=== PATIENT | female | born 1950 | race African-American/Black ===

== ENCOUNTER 2019-11-22 10:19 | Outpatient (CLI) | payer MEDICARE, BC, SELFPAY ==
[2019-11-22 12:07] LABS: Hemoglobin A1C 6.7 % (<5.7)
[2019-11-22 12:09] LABS: Alanine Aminotransferase 24 U/L (4-35); Alkaline Phosphatase 55 U/L (38-126); Aspartate Amino Transferase 29 U/L (14-36); Bilirubin,Total 0.4 mg/dL (0.2-1.3); Blood Urea Nitrogen 18 mg/dL (7-17); Calcium 9.8 mg/dL (8.4-10.2); Carbon Dioxide 33 mmol/L (22-30); Chloride 101 mmol/L (98-107); Cholesterol 127 mg/dL (0-200); Estimated Glomerular Filt Rate > 60; Glucose 123 mg/dL (65-105); HDL Direct 39 mg/dL; Potassium 3.9 mmol/L (3.4-5.0); Sodium 140 mmol/L (137-145); Triglycerides 56 mg/dL (<150)
[2019-11-22 12:20] LABS: LDL Cholesterol Direct 71 mg/dL
[2019-11-22 12:27] LABS: MALB Creatinine Ratio 5.4 mg/g (0-30); Microalbumin Urine Random 11.4 mg/L (0-16.7)
== END 2019-11-22 10:20 | disposition home or self-care (01) ==
LOC: ANHLAB 10:23
PROVIDERS: PCP Family Medicine; Visit Provider Nurse Practitioner
DX: E78.5 Hyperlipidemia, unspecified (principal); E11.9 Type 2 diabetes mellitus without complications
CPT/HCPCS: 36415; 80053; 80061; 82043; 83036

== ENCOUNTER → 2020-07-28 12:22 | Outpatient (CLI) | payer MEDICARE, BC, SELFPAY ==
--- NOTE | ~2020-07-28 | MM_ITS ---
EXAMINATION: MM screening [facility] BI w rebecca HISTORY: Screening mammogram TECHNIQUE: Craniocaudal and mediolateral oblique 3-D tomosynthesis images were obtained and synthetic 2-D images were generated. CAD analysis was submitted and interpreted. COMPARISON: 02/16/2019, 02/09/2018, 02/07/2017 BREAST PARENCHYMAL COMPOSITION: There are scattered areas of fibroglandular density. FINDINGS: Scattered benign-appearing calcifications are present. There is no evidence of suspicious m ass, calcification, or architectural distortion to suggest malignancy in either breast. There has bee n no suspicious interval change. IMPRESSION: 1. No mammographic evidence of malignancy. 2. Recommend routine screening mammography in one year. BI-RADS Category 2: Benign finding(s). Reviewed, dictated and finalized at location A.
== END ==
PROVIDERS: PCP Family Medicine; Visit Provider Family Medicine
DX: Z12.31 Encounter for screening mammogram for malignant neoplasm of breast (principal)
CPT/HCPCS: 77063; 77067

== ENCOUNTER 2020-08-05 10:22 | Outpatient (CLI) | payer MEDICARE, BC, SELFPAY ==
[2020-08-05 10:52] LABS: Basophils Percent Auto 0.1 % (0.2-1.2); Eosinophils Absolute Auto 0.1 K/mm3 (0-0.3); Eosinophils Percent Auto 1.4 % (0-4.4); Hematocrit 38.4 % (37.0-47.0); Hemoglobin 12.1 g/dL (12.0-15.0); Immature Granulocyte Absolute 0.03 K/mm3 (0.00-0.031); Immature Granulocyte Percent A 0.4 % (0-0.5); Lymphocytes Absolute Auto 1.86 K/mm3 (0.9-3.2); Lymphocytes Percent Auto 26.7 % (18.3-44.2); Mean Corpuscular HGB Conc 31.5 g/dl (32-36); Mean Corpuscular Hemoglobin 27.8 pg (26-34); Mean Corpuscular Volume 88.3 fl (80-100); Mean Platelet Volume 11.1 fl (7.4-10.4); Monocytes Absolute Auto 0.4 K/mm3 (0.1-0.6); Monocytes Percent Auto 6.2 % (2.6-8.5); Neutrophils Absolute Auto 4.5 K/mm3 (1.3-6.7); Neutrophils Percent Auto 65.2 % (45.5-73.1); Platelet Count Result 228 k/mm3 (150-375); Red Blood Count 4.35 M/mm3 (4.2-5.4); Red Cell Distribution Width 12.7 % (11.5-14.5)
[2020-08-05 11:06] LABS: Alanine Aminotransferase 19 U/L (4-35); Albumin Level 4.1 g/dL (3.5-5.1); Alkaline Phosphatase 58 U/L (38-126); Anion Gap 6 mmol/L (8-16); Aspartate Amino Transferase 29 U/L (14-36); Bilirubin,Total 0.5 mg/dL (0.2-1.3); Blood Urea Nitrogen 15 mg/dL (7-17); Calcium 10.2 mg/dL (8.4-10.2); Carbon Dioxide 33 mmol/L (22-30); Chloride 101 mmol/L (98-107); Cholesterol 135 mg/dL (0-200); Estimated Glomerular Filt Rate > 60; Glucose 111 mg/dL (65-105); HDL Direct 44 mg/dL; Sodium 140 mmol/L (137-145); Triglycerides 72 mg/dL (<150)
[2020-08-05 11:17] LABS: LDL Cholesterol Direct 64 mg/dL
[2020-08-05 11:35] LABS: Total Triiodothyronine (T3) 1.28 NG/ML (0.97-1.69)
[2020-08-05 11:45] LABS: Creatinine Urine 22.1 mg/dL
[2020-08-05 11:47] LABS: Free T4 Free Thyroxine 1.05 ng/mL (0.78-2.19); Vitamin D 25 Hydroxy 60.4 ng/mL
[2020-08-05 12:14] LABS: Microalbumin Urine Random < 6.0 mg/L (0-16.7)
== END 2020-08-05 10:23 | disposition home or self-care (01) ==
LOC: ANHLAB 10:25
PROVIDERS: PCP Family Medicine; Visit Provider Family Medicine
DX: E11.21 Type 2 diabetes mellitus with diabetic nephropathy (principal); E03.9 Hypothyroidism, unspecified; E78.3 Hyperchylomicronemia; M62.81 Muscle weakness (generalized); Z13.0 Encounter for screening for diseases of the blood and blood-forming organs and certain disorders involving the immune mechanism; Z13.6 Encounter for screening for cardiovascular disorders; Z13.220 Encounter for screening for lipoid disorders; Z13.29 Encounter for screening for other suspected endocrine disorder; R80.9 Proteinuria, unspecified; E55.9 Vitamin D deficiency, unspecified
CPT/HCPCS: 36415; 80053; 80061; 82043; 82306; 84439; 84443; 84480; 85025

== ENCOUNTER 2020-12-07 16:16 | Outpatient (CLI) | payer MEDICARE, BC, SELFPAY | END 2020-12-07 16:17 | disposition home or self-care (01) | LOC: ANHCOVIDVC 16:16 | PROVIDERS: PCP Family Medicine | DX: Z23 Encounter for immunization (principal) | CPT/HCPCS: 0001A; 91300 ==

== ENCOUNTER 2020-12-28 16:12 | Outpatient (CLI) | payer MEDICARE, BC, SELFPAY | END 2020-12-28 16:13 | disposition home or self-care (01) | LOC: ANHCOVIDVC 16:12 | PROVIDERS: PCP Family Medicine | DX: Z23 Encounter for immunization (principal) | CPT/HCPCS: 0002A; 91300 ==

== ENCOUNTER 2021-01-23 16:10 | Inpatient (IN) | payer MEDICARE, BC, SELFPAY ==
--- NOTE | ~2021-01-23 | CT_ITS ---
EXAMINATION: CT BRAIN W/O DATE: 01/23/2021 17:20 INDICATION: Status post fall. Head injury. TECHNIQUE: Computed tomography (CT) of the head was performed without intravenous contrast. The dose- length product was 605.33 mGy-cm. COMPARISON: No prior studies for comparison. FINDINGS: Normal brain parenchymal volume for age. Normal yun-white differentiation. No acute intrac ranial hemorrhage, infarction, mass or mass effect. There is focal calcification of the left temporal lobe, likely sequela of previous trauma or infection. No ventriculomegaly or midline shift. Midline sagittal images demonstrate a normal corpus callosum, c raniovertebral junction and sella turcica. Basilar cisterns are patent. Paranasal sinuses and mastoids are pneumatized. No depressed skull fractures. IMPRESSION: 1. No acute intracranial abnormality. Reviewed, dictated and finalized at location A.
--- NOTE | ~2021-01-23 | XR_ITS ---
XR hip BI 2V w AP pelvis 01/23/2021 17:32 INDICATION: Bilateral hip pain. Status post fall. PROCEDURE: 3 views of each hip including AP pelvis COMPARISON: No prior studies for comparison. FINDINGS: Fracture, dislocation or subluxation is not identified. There is advanced lower lumbar spon dylosis. Pelvic rings are intact. The soft tissues appear within normal limits. No foreign bodies ar e identified. IMPRESSION: 1: NO ACUTE BONE OR JOINT ABNORMALITY IDENTIFIED. Reviewed, dictated and finalized at location A.
--- NOTE | ~2021-01-23 | XR_ITS ---
XR chest 1V 01/23/2021 17:34 Indication: Hypertension. Diabetes. Procedure: AP view of the chest Comparison: No prior studies for comparison. Findings: There are right perihilar infiltrates, suspicious for pneumonia. Cardiomegaly. No pleural e ffusion, edema or pneumothorax. No acute osseous abnormality. Impression: 1: Right perihilar infiltrates, compatible with pneumonia. Reviewed, dictated and finalized at location A. Impression: 1: Right perihilar infiltrates, compatible with pneumonia.
--- NOTE | ~2021-01-23 | XR_ITS ---
XR knee LT 3V 01/23/2021 17:33 INDICATION: Left knee pain PROCEDURE: 3 views left knee COMPARISON: No prior studies for comparison. FINDINGS: Fracture, dislocation or subluxation is not identified. The soft tissues appear within norm al limits. No foreign bodies are identified. IMPRESSION: 1: NO ACUTE BONE OR JOINT ABNORMALITY IDENTIFIED. Reviewed, dictated and finalized at location A.
--- NOTE | ~2021-01-23 | CT_ITS ---
EXAMINATION: CTA chest PE protocol DATE: 01/23/2021 19:15 CDT INDICATION: Dyspnea. Infiltrates. TECHNIQUE: Computed tomographic angiography (CTA) of the chest was performed with 100 mL Omnipaque-35 0 intravenous contrast. The dose-length product was 235.07 mGy-cm. Maximum intensity projection 3D-re constructions of the aorta and other arteries were constructed by the technologist on a separate work station. COMPARISON: None. FINDINGS: The study is technically adequate without evidence for pulmonary embolism. No significant p leural or pericardial effusion. Heart size is normal. No thoracic lymphadenopathy. No evidence for aortic aneurysm or dissection. The right perihilar infiltrate seen on chest x-ray dated 01/23/[address] is [address] appreciated [address] CT examination, likely soft tissue attenuation artifact. No endobronchial lesions. No pneumothorax. No suspicious pu lmonary nodules or masses. There is a hypodense lesion of the right hepatic lobe measuring 3.3 x 2.4 cm. Otherwise the upper abd omen is unremarkable. IMPRESSION: 1. No acute cardiopulmonary disease. No evidence for pulmonary embolism. 2: Hypodense mass right hepatic lobe measuring 3.3 x 2.4 cm. In the absence of known malignancy this most likely represents benign etiology such as hemangioma, although malignancy is not excluded. Recom mend further evaluation with contrast-enhanced MRI abdomen on a nonemergent basis. Reviewed, dictated and finalized at location A. IMPRESSION: 1. No acute cardiopulmonary disease. No evidence for pulmonary embolism. 2: Hypodense mass right hepatic lobe measuring 3.3 x 2.4 cm. In the absence of known malignancy this most likely represents benign etiology such as hemangioma , although malignancy is not excluded. Recommend further evaluation with contra st-enhanced MRI abdomen on a nonemergent basis.
--- NOTE | ~2021-01-23 | NM_ITS ---
EXAMINATION: NM carlos stress w perfusion DATE: 01/25/2021 13:13 INDICATION: Elevated troponin. TECHNIQUE: Rest images were obtained following intravenous administration of 9.8 mCi Tc99m tetrofosmi n (Myoview). The patient was infused intravenously with Lexiscan (regadenoson). Then, 20.2 mCi Tc99m tetrofosmin (Myoview) was administered intravenously, and stress images were obtained. Data was recon structed into short axis and horizontal and vertical long axis SPECT images. Gated SPECT images were also obtained. COMPARISON: Chest CT 01/23/2021 FINDINGS: There is a small, mild, fixed perfusion defect involving left ventricular apex and apical s eptal segment, consistent with infarct. No reversible component to suggest ischemia. There is global hypokinesis.. Left ventricular ejection fraction measures 36%. IMPRESSION: 1. Small area of mild infarct involving left ventricular apex and apical septal segment. 2. Global hypokinesis with left ventricular ejection fraction measuring 36%. Reviewed, dictated and finalized at location A.
--- NOTE | ~2021-01-23 | CT_ITS ---
EXAMINATION: CT facial & cervical spine wo DATE: 01/23/2021 17:22 INDICATION: Neck and facial pain after fall TECHNIQUE: Computed tomography (CT) of the maxillofacial region and cervical spine was performed with out intravenous contrast. The dose-length product was 276.34 mGy-cm. Automated exposure control and i terative reconstruction technique were employed. COMPARISON: None FINDINGS: MAXILLOFACIAL CT: No acute maxillofacial fracture. No focal soft tissue abnormality. Paranasal sinuses are pneumatized. Rightward nasal septal deviation. Orbits are intact without blowout fracture. CERVICAL SPINE CT: Straightening of cervical lordosis. There is severe multilevel disc narrowing and endplate sclerosis throughout the cervical spine. No acute fracture or traumatic malalignment. No evidence for perched f acet. There is moderate-severe multilevel uncinate and facet hypertrophy. Lung apices are unremarkabl e. IMPRESSION: 1. No acute abnormality of the maxillofacial bones or cervical spine. Reviewed, dictated and finalized at location A.
[2021-01-23 16:08] VITALS: BP 198/96; PULSE 105; RESP 18; TEMP 36.6; O2SAT 97
--- NOTE | 2021-01-23 16:54 | ECG_ITS ---
Measurements Intervals [place] Rate: 89 P: 60 AL: 170 QRS: 3 QRSD: 157 T: 81 QT: 404 QTc: 494 Interpretive Statements SINUS RHYTHM RIGHT ATRIAL ENLARGEMENT LEFT BUNDLE BRANCH BLOCK ABNORMAL ECG Electronically Signed On 01-23-2021 18:59:56 CDT by Kee Kessler D.O.
--- NOTE | 2021-01-23 17:18 | ED.GENADULT ---
HPI - General Adult General Chief complaint: Fall Stated complaint: fall/laceration Source: patient Mode of arrival: EMS Limitations: other History of Present Illness HPI narrative: Patient presents for evaluation after experiencing a fall at [facility] just prior to arrival. She was brought in by EMS and her sister is at the bedside. Patient is a fairly poor historian and provides vague details related to her fall. Her sister was in the car while pt was grocery shopping. Pt states she paid for her groceries and was walking when she felt something wrong with (her) legs . She said she found herself on the ground. No LOC. She is not on blood thinners. She states that her left knee feels sore . She has a laceration to the chin. She reports pain in her jaw, particularly when opening her mouth. She is diabetic. Her BS are normal at home. She is unsure when her last tetanus was given. She denies chest pain, shortness of breath, cough, abdominal pain, fever, chills, dizziness, and other complaints. No additional complaints or concerns. Related Data Home Medications Medication Instructions Recorded Confirmed acetaminophen 325 mg tablet 325 mg PO Q4H PRN tablet 09/10/19 12/10/19 diclofenac potassium 50 mg oral 50 mg PO BID PRN each 09/10/19 12/10/19 powder packet ranitidine HCl 150 mg tablet 150 mg PO BID tablet 09/10/19 12/10/19 vit A 1,000 unit-C 200 mg-E 60 1 tablet PO DAILY 09/10/19 12/10/19 unit-lutein 2 mg and minerals tablet brimonidine 0.2 %-timolol 0.5 % drp OPHTHALMIC (EYE) 11/05/19 12/10/19 eye drops lancets #50 each 12/10/19 12/10/19 Allergies Allergy/AdvReac Type Severity Reaction Status Date / Time azithromycin Allergy Unknown Itching Verified 01/23/21 16:14 Sulfa (Sulfonamide Allergy Unknown palpatition Verified 01/23/21 16:14 Antibiotics) s sulfur dioxide Allergy Unknown palpatition Verified 01/23/21 16:14 s Review of Systems Review of Systems: Narrative: CONSTITUTIONAL: Denies fever, chills, or sweats. EYES: Denies visual changes, redness, or discharge. ENT: Denies rhinorrhea, congestion, sore throat, or otalgia. CARDIOVASCULAR: Denies chest pain, palpitations, or edema. RESPIRATORY: Denies cough or dyspnea. GASTROINTESTINAL: Denies abdominal pain, nausea, vomiting, or diarrhea. GENITOURINARY: Denies dysuria or hematuria. SKIN: Reports laceration to the chin. Denies rash or itching. MUSCULOSKELETAL: Reports left knee pain. Reports chronic low back pain, unchanged. NEUROLOGIC: Reports fall. denies headache, numbness, dizziness, or weakness. PSYCHIATRIC: Denies anxiety or depression. [facility] Past Medical History Medical History (Updated 01/23/21 @ 20:18 by Bashir Brooks, CARLY, ) Essential (primary) hypertension (~2004) H/O barium enema 2017 Hyperlipidemia (~1999) Sinusitis Type 2 diabetes mellitus without complications (~1999) Surgical History Surgical History H/O colonoscopy 2017 Family History Family History Mother Diabetes mellitus Hypertension Sibling Diabetes mellitus Hypertension Glaucoma, Onset Age: 65 older sister Malignant neoplasm of prostate, Onset Age: 55 older brother Heart disease, Onset Age: 65 1/2 older sister: by mother Carcinoma of colon, Onset Age: 55 biological sister Father Glaucoma Other Family history of colonic diverticulitis Family history of glaucoma Social History Social History Smoking status: Never smoker Second hand tobacco smoke exposure: Yes Alcohol intake: current Substance use: never Living arrangements: with family Gender identity (if verbalized by the patient): Female Exam Narrative: Exam Narrative: GENERAL: Well-appearing, well-nourished, and in no acute distress. HEAD:
[2021-01-23 17:57] VITALS: BP 171/77; PULSE 86; RESP 18; O2SAT 99
[2021-01-23 17:59] LABS: Basophils Percent Auto 0.3 % (0.2-1.2); Eosinophils Absolute Auto 0.1 K/mm3 (0-0.3); Eosinophils Percent Auto 0.8 % (0-4.4); Hematocrit 38.7 % (37.0-47.0); Hemoglobin 12.4 g/dL (12.0-15.0); Immature Granulocyte Absolute 0.02 K/mm3 (0.00-0.031); Immature Granulocyte Percent A 0.3 % (0-0.5); Lymphocytes Absolute Auto 1.65 K/mm3 (0.9-3.2); Lymphocytes Percent Auto 22.9 % (18.3-44.2); Mean Corpuscular Hemoglobin 27.9 pg (26-34); Mean Platelet Volume 11.7 fl (7.4-10.4); Monocytes Absolute Auto 0.4 K/mm3 (0.1-0.6); Monocytes Percent Auto 5.4 % (2.6-8.5); Neutrophils Absolute Auto 5.1 K/mm3 (1.3-6.7); Neutrophils Percent Auto 70.3 % (45.5-73.1); Platelet Count Result 199 k/mm3 (150-375); Red Blood Count 4.45 M/mm3 (4.2-5.4); Red Cell Distribution Width 13.1 % (11.5-14.5); White Blood Count 7.2 K/mm3 (4.5-10.0)
[2021-01-23 18:02] LABS: Add Urine Microscopic? YES; Appearance Urine Clear (Clear); Bacteria Urine Trace /hpf; Bilirubin Urine Negative (Negative); Blood Urine Negative (Negative); Color Urine Straw (Yellow); Glucose Urine UA Negative (Negative); Ketones Urine Negative (Negative); Leukocyte Esterase Ur Negative LEU/UL (Negative); Nitrate Urine Negative (Negative); Protein Urine Negative (Negative); Specific Grav Ur 1.011 (1.001-1.035); Urobilinogen Urine Negative mg/dL (<2.0); WBC Urine 0-3 /hpf
[2021-01-23 18:08] LABS: INR 0.9
[2021-01-23 18:09] LABS: Partial Thromboplastin Time 22.7 SECONDS (22.3-36.8)
[2021-01-23 18:21] LABS: Alanine Aminotransferase 21 U/L (4-35); Albumin Level 4.3 g/dL (3.5-5.1); Alkaline Phosphatase 57 U/L (38-126); Anion Gap 5 mmol/L (8-16); Aspartate Amino Transferase 39 U/L (14-36); Bilirubin,Total 0.3 mg/dL (0.2-1.3); Blood Urea Nitrogen 26 mg/dL (7-17); Carbon Dioxide 30 mmol/L (22-30); Chloride 105 mmol/L (98-107); Estimated CRCL calculation 50 ml/min; Estimated Glomerular Filt Rate > 60; Glucose 153 mg/dL (65-105); Sodium 140 mmol/L (137-145)
--- NOTE | 2021-01-23 19:08 | PC.NURSE ---
this rn received report from tyler kimble at this time.
[2021-01-23 19:49] VITALS: BP 165/75; PULSE 93; RESP 18; O2SAT 99
--- NOTE | 2021-01-23 20:37 | PM.IMHP ---
H&P: HPI History of Present Illness Date/Time: 01/23/21 20:37 Chief Complaint: Acute fall today+ Narrative: This is a pleasant 70-year-old diabetic female with known past medical history of chronic hypertension and hyperlipidemia who presented to the hospital today after suffering a ground level fall outside of [employer] store. Apparently the patient was walking after she paid for her groceries when suddenly she believes that she tripped and fell forward. She does remember that she felt as if her legs gave out on her and then she tripped and fell face 1st striking her chin and nose on the concrete. Patient denies passing out or loss of consciousness. On arrival to the emergency room the patient was complaining of left knee pain and pain of her chin. She was found have a small laceration on her chin which was sutured in the emergency room. The patient had previously eaten pizza about 30 minutes before her fall and tells me that her blood sugar was normal when the EMS assessed her. She denies any recent fevers, chills, headache, chest pain, shortness of breath, cough, wheezing, abdominal pain, dizziness, dysuria, hematuria, diarrhea, rectal bleeding, nausea, vomiting, lower extremity swelling, lower extremity redness, or other focal neurological deficits. The patient was found to incidentally have a mildly elevated troponin of 0.05 on routine labs. CTA chest was performed which reported no acute cardiopulmonary disease and no evidence for pulmonary embolism. An incidental hypodense mass right hepatic lobe measuring 3.3 x 2.4 cm. ER provider treated the patient with empiric Levaquin IV because her chest x-ray suggested possible pneumonia. We been asked to admit the patient to the hospital because she had a mildly elevated troponin. On my encounter with her tonight she has no other complaints other than mild facial discomfort from her trauma. No other complaints at this time. Review of Systems Review of Systems: All systems reviewed & are unremarkable except as noted in HPI and below PMFSH Past Medical History Medical History (Updated 01/23/21 @ 20:47 by Jitendra King MD) Essential (primary) hypertension (~2004) GERD (gastroesophageal reflux disease) Glaucoma H/O barium enema 2016 Hyperlipidemia (~1999) Sinusitis Type 2 diabetes mellitus without complications (~1999) Surgical History Surgical History (Updated 01/23/21 @ 20:42 by Jitendra King MD) H/O colonoscopy 2017 S/P iridectomy Family History Family History Mother Diabetes mellitus Hypertension Sibling Diabetes mellitus Hypertension Glaucoma, Onset Age: 65 older sister Malignant neoplasm of prostate, Onset Age: 55 older brother Heart disease, Onset Age: 65 1/2 older sister: by mother Carcinoma of colon, Onset Age: 55 biological sister Father Glaucoma Other Family history of colonic diverticulitis Family history of glaucoma Social History Social History Smoking status: Never smoker Second hand tobacco smoke exposure: Yes Alcohol intake: current Substance use: never Living arrangements: with family Gender identity (if verbalized by the patient): Female Meds Home Medications and Allergies Home Medications Medication Instructions Recorded Confirmed Type acetaminophen 325 mg tablet 325 mg PO Q4H PRN tablet 09/10/19 12/10/19 History diclofenac potassium 50 mg oral 50 mg PO BID PRN each 09/10/19 12/10/19 History powder packet ranitidine HCl 150 mg tablet 150 mg PO BID tablet 09/10/19 12/10/19 History vit A 1,000 unit-C 200 mg-E 60 1 tablet PO DAILY 09/10/19 12/10/19 History unit-lutein 2 mg and minerals tablet brimonidine 0.2 %-timolol 0.5 % drp OPHTHALMIC (EYE) 11/05/19 12/10/19 History eye drops lancets #50 each 12/10/19 12/10/19 History lisinopril
[2021-01-23 21:27] VITALS: BP 161/74; PULSE 94; RESP 18; O2SAT 94
[2021-01-23 21:55] VITALS: BMI 22.4
[2021-01-23 22:00] VITALS: BP 157/85; PULSE 88; PULSE 92; RESP 18; TEMP 36.3; O2SAT 100; BMI 22.4
--- NOTE | 2021-01-23 22:00 | PC.NURSE ---
This patient, Corinne Suh, was admitted to IMU Room 231-01. Patient/family oriented to hospital policies and general routines including ID bracelet, bed and alarms, visiting hours, pain management, procedures, bathroom and other care routines, personal items, smoking policy, room service/diet, and visiting hours. Information on how to activate the Rapid Response Team has been discussed. Patient/Family are encouraged to report perceived risks to care and to ask questions if they do not understand what they are told or what they should do.
[2021-01-23 22:40] VITALS: BMI 22.4
[2021-01-23] MEDS: ACETAMINOPHEN 325 MG TABLET 650 MG PO (23:03)
[2021-01-24] VITALS (16 sets, daily range): BP systolic 120–147; BP diastolic 58–83; PULSE 70–85; RESP 12–20; TEMP 36.2–36.7; O2SAT 99–100
[2021-01-24] MEDS: SIMVASTATIN 10 MG TABLET PO ×2 (01:58→17:25)
[2021-01-24 07:59] LABS: Glucose Point of Care 125 (65-105)
[2021-01-24] MEDS: lisinopriL 20 MG TABLET PO (08:02)
[2021-01-24] MEDS: amLODIPine BESYLATE 5 MG TABLET 10 MG PO (08:03)
[2021-01-24] MEDS: metFORMIN HCL 500 MG TABLET PO (08:03)
[2021-01-24] MEDS: hydroCHLOROthiazide 25 MG TABLET PO (08:03)
[2021-01-24] MEDS: TIMOLOL MALEATE 0.5% OP SOLN 5 ML BOTTLE 1 DROP RIGHT EYE ×2 (08:08→20:31)
[2021-01-24] MEDS: BRIMONIDINE TARTRATE 0.2% OP SOLN 5 ML BTL 1 DROP RIGHT EYE ×2 (08:08→20:30)
--- NOTE | 2021-01-24 11:41 | PM.CNCAR ---
Assessment and Plan Assessment and plan (1) Left bundle branch block: Code(s): I44.7 - Left bundle-branch block, unspecified Status: Acute Assessment and Plan: Unknown duration. Will check a 2D echocardiogram with Doppler to assess LV size and function. (2) Fall: Qualifiers: Encounter type: initial encounter Qualified Code(s): W19.XXXA - Unspecified fall, initial encounter Code(s): W19.XXXA - Unspecified fall, initial encounter Status: Acute Assessment and Plan: This is not related to arrhythmia nor low blood pressure. I think this is a simple trip and fall situation (3) Hypertension associated with diabetes: Code(s): E11.59 - Type 2 diabetes mellitus with other circulatory complications; I15.2 - Hypertension secondary to endocrine disorders Status: Acute Assessment and Plan: Markedly elevated at presentation but better controlled at present (4) Hyperlipidemia associated with type 2 diabetes mellitus: Code(s): E11.69 - Type 2 diabetes mellitus with other specified complication; E78.5 - Hyperlipidemia, unspecified Status: Acute Assessment and Plan: On statin (5) PVC (premature ventricular contraction): Code(s): I49.3 - Ventricular premature depolarization Status: Acute Assessment and Plan: Will check a magnesium level. Potassium was normal. Will also check a TSH and free T4 level (6) Elevated troponin: Code(s): R77.8 - Other specified abnormalities of plasma proteins Status: Acute Assessment and Plan: This is probably related to marked hypertension at presentation. Will start on aspirin 81 mg daily. Continue her other drug regimen without change. Will Keep her NPO after midnight. Lexiscan myocardial perfusion study in the morning. Echocardiogram is also being ordered. History of Present Illness History of Present Illness Consult date/time: 01/24/21 11:41 Requesting physician: Jayashree Martell MD Consult reason: Other (Elevated troponin, PVCs) Reason For Visit: positive troponin, CAP, facial laceration Narrative: Date of service 01/24/2021: History: Patient is a 70-year-old female who has a history of hypertension, hyperlipidemia, diabetes. She came to the hospital following a fall. She thinks that she tripped and fell. She did cut her [place] as well as has some swelling in her lips and nose. She did not pass out and she is adamant that she did not lose consciousness. She also had no palpitations or chest pain. Upon arrival to the ER, she did have troponins ordered which were minimally elevated. Uncertain as to why troponins were ordered but as such they were trended and they did peak at a level of 0.10. EKG did show a left bundle branch block and she has occasional PVCs on clinical research monitor. Consultation was therefore requested. Patient has no chest pain nor has been having any chest pain lately. She has no chest pain with exertion, shortness of breath, syncope, presyncope, paroxysmal nocturnal dyspnea, orthopnea, edema or palpitations. She has no known cardiac issues that she is aware of. Review of Systems Review of Systems: All systems reviewed & are unremarkable except as noted in HPI and below Constitutional: Constitutional: Denies weakness Eyes: Eyes: Denies blurry vision ENT: Reports Normal hearing present Cardiovascular: Cardiovascular: Denies chest pain Respiratory: Respiratory: Denies dyspnea Gastrointestinal: Gastrointestinal: Denies abdominal pain Genitourinary: Genitourinary: Denies flank pain Musculoskeletal: Musculoskeletal: Denies neck pain Integumentary/Breasts: Skin/Breast: Denies dry skin Neurologic: Denies headache(s) Psychiatric: Psychiatric: Denies anxiety Endocrine: Endocrine: Denies fatigue Hematologic/Lymphatic: Hematologic/Lymphatic: Denies easy bleeding Allergic/Immunologic: Allergic/Immunologic: Denies GI upset with certain foods PM
[2021-01-24] MEDS: ASPIRIN 81 MG ENTERIC TABLET PO (12:48)
[2021-01-24 13:14] LABS: T4 Thyroxine 8.87 ug/dL (5.53-11.0)
--- NOTE | 2021-01-24 13:43 | PM.IMPN ---
Progress Note: A&P Assessment and Plan (1) Elevated troponin: Code(s): R77.8 - Other specified abnormalities of plasma proteins Status: Acute Assessment and Plan: Patient denies any past medical history of coronary artery disease and has not had any chest pain. Pt sen by cardiology will need Lexiscan in the morning. (2) Laceration of face: Qualifiers: Encounter type: initial encounter Qualified Code(s): S01.81XA - Laceration without foreign body of other part of head, initial encounter Code(s): S01.81XA - Laceration without foreign body of other part of head, initial encounter Status: Acute Assessment and Plan: Continue pain control as needed (3) Fall: Qualifiers: Encounter type: initial encounter Qualified Code(s): W19.XXXA - Unspecified fall, initial encounter Code(s): W19.XXXA - Unspecified fall, initial encounter Status: Acute Assessment and Plan: Appears to be a mechanical fall as the patient denies passing out. PT/OT Order orthostatic Bps (4) Liver mass: Code(s): R16.0 - Hepatomegaly, not elsewhere classified Status: Acute Assessment and Plan: May be a hemiangioma. The patient will need to follow-up with her outpatient doctor. (5) Type 2 diabetes mellitus without complications: Onset Date: ~1999 Qualifiers: Diabetes mellitus halfway insulin use: without buttermaker helper use Qualified Code(s): E11.9 - Type 2 diabetes mellitus without complications Code(s): E11.9 - Type 2 diabetes mellitus without complications Status: Chronic Assessment and Plan: Accu-Cheks, sliding scale insulin coverage, hypoglycemia protocol. Continue metformin (6) Hyperlipidemia: Onset Date: ~1999 Qualifiers: Hyperlipidemia type: unspecified Qualified Code(s): E78.5 - Hyperlipidemia, unspecified Code(s): E78.5 - Hyperlipidemia, unspecified Status: Chronic Assessment and Plan: Continue statin therapy. (7) Essential (primary) hypertension: Onset Date: ~2004 Code(s): I10 - Essential (primary) hypertension Status: Chronic Assessment and Plan: Monitor blood pressure. Continue lisinopril, hydrochlorothiazide, amlodipine. (8) Glaucoma: Qualifiers: Glaucoma type: unspecified Laterality: unspecified laterality Qualified Code(s): H40.9 - Unspecified glaucoma Code(s): H40.9 - Unspecified glaucoma Status: Chronic Assessment and Plan: Continue home eye drops (9) GERD (gastroesophageal reflux disease): Qualifiers: Esophagitis presence: esophagitis presence not specified Qualified Code(s): K21.9 - Gastro-esophageal reflux disease without esophagitis Code(s): K21.9 - Gastro-esophageal reflux disease without esophagitis Status: Chronic Assessment and Plan: Continue H2 ravi Subjective Date/time seen: 01/24/21 13:43 Interval history: 70-year-old diabetic female with known past medical history of chronic hypertension and hyperlipidemia who presented to the hospital today after suffering a ground level fall outside of [employer]. Pt hit her chin and had stitches of her chin. Pt denies chest pain or SOB. describes accidentally fall while shopping. Tele shows PVC, EKG is Abnl, Pt has elevated troponin. Pt seen by cardiology pt will need lexiscan tomorrow. Review of Systems Review of Systems: All systems reviewed & are unremarkable except as noted in HPI and below Exam Const: General: cooperative Nutritional Appearance: well nourished Orientation/consciousness: patient oriented x3 HENMT: Head: laceration (On her chin+) Resp: Effort & Inspection: normal respiratory effort Auscultation: clear to auscultation bilaterally Cardio: Rate: regular rate Rhythm: regular rhythm Heart sounds: no murmurs GI: Inspection: normal to inspection Auscultation: normal vanda
[2021-01-24 16:27] LABS: Glucose Point of Care 134 (65-105)
[2021-01-24] MEDS: ACETAMINOPHEN 325 MG TABLET 650 MG PO (20:31)
[2021-01-25] VITALS (16 sets, daily range): BP systolic 131–145; BP diastolic 64–122; PULSE 64–136; RESP 16–20; TEMP 36.1–36.6; O2SAT 93–100
[2021-01-25 05:17] LABS: Anion Gap 2 mmol/L (8-16); Blood Urea Nitrogen 17 mg/dL (7-17); Calcium 9.4 mg/dL (8.4-10.2); Carbon Dioxide 34 mmol/L (22-30); Chloride 102 mmol/L (98-107); Estimated CRCL calculation 45 ml/min; Estimated Glomerular Filt Rate > 60; Glucose 122 mg/dL (65-105); Potassium 3.6 mmol/L (3.4-5.0); Sodium 138 mmol/L (137-145)
--- NOTE | 2021-01-25 08:00 | ECHO_ITS ---
Patient Info Name: Corinne Suh Age: 70 years : 1950 Gender: Female Ht: 67 in Wt: 144 lbs BSA: 1.76 m2 HR: 86 bpm BP: 137 / 65 mmHg Heart Rhythm: Sinus Rhythm Technical Quality: Good Exam Date: 01/25/2021 2:08 PM Exam Location: [facility] Pulmonary Patient Status: Inpatient Admit Date: 01/23/2021 Staff Ordering Physician: Bashir Guzman MD [employer] Administrator: Nish Ramos, HIRACS, RT Attending Provider: Jitendra King MD Referring Physician: Thomas RITTER; Exam Type: CA echo doppler color flow Study Info Indications R06.00 - Dyspnea, unspecified Complete two-dimensional, color flow and Doppler transthoracic echocardiogram is performed. Strain analysis performed. Summary 1. Complete two-dimensional, color flow and Doppler transthoracic echocardiogram is performed. 2. Left ventricular systolic function is moderately reduced, estimated at 35-40%. 3. There is mildly increased left ventricular wall thickness. 4. Left ventricular septal wall motion is abnormal with septal motion related to bundle branch block. 5. There is mild mitral valve regurgitation. 6. Unable to estimate PA systolic pressure due to poor spectral resolution of tricuspid regurgitant jet velocity. 7. There is small pericardial effusion. Left Ventricle Left ventricular chamber dimension is normal. Left ventricular systolic function is moderately reduced, estimated at 35-40%. There is mildly increased left ventricular wall thickness. Left ventricular septal wall motion is abnormal with septal motion related to bundle branch block. The left ventricular diastolic function is grade I diastolic dysfunction. Global longitudinal strain is mildly elevated at -16 %. Right Ventricle Right ventricular chamber dimension is normal. Right ventricular systolic function is normal. Left Atria Left atrial chamber dimension is normal. Right Atria Right atrial chamber dimension is normal. Aortic Valve The aortic valve is not well visualized. There is no aortic valve stenosis. There is no aortic valve regurgitation. Pulmonic Valve The pulmonic valve is not well visualized. Mitral Valve The mitral valve has thickened leaflets. There is mild mitral valve regurgitation. The mitral valve annulus is mildly calcified. Tricuspid Valve The tricuspid valve leaflets are normal. There is mild tricuspid valve regurgitation. Unable to estimate PA systolic pressure due to poor spectral resolution of tricuspid regurgitant jet velocity. Pericardium/Pleural The pericardium appears normal. There is small pericardial effusion. Inferior Vena Cava Normal inferior vena cava with >50% collapse upon inspiration consistent with normal right atrial pressure, 5 mmHg. Aorta The aortic root size at the sinus of Valsalva is normal. Left Ventricular Outflow Tract Name Value Normal LVOT 2D LVOT Diameter 2.1 cm LVOT Doppler LVOT Peak Gradient 3 mmHg LVOT Mean Gradient 2 mmHg LVOT VTI 14 cm LVOT VTI/AV VTI Ratio 0.7
--- NOTE | 2021-01-25 08:00 | EST_ITS ---
Patient Info Name: Corinne Suh Age: 70 years : 1950 Gender: Female Ht: 67 in Wt: 143 lbs BSA: 1.75 m2 Heart Rhythm: Sinus Rhythm Exam Date: 01/25/2021 11:51 AM Exam Location: [facility] Stress Patient Status: Inpatient Admit Date: 01/23/2021 Staff Ordering Physician: Bashir Guzman MD Attending Provider: Jitendra King MD Exercise Physician: Jose Millan MD Exam Type: CA stress carlos w NM Study Info Indications - elevated troponin A regadenoson stress test was performed. Summary 1. Indeterminate ECG due to left bundle branch block. 2. Frequent stress-induced PVCs. 3. No chest discomfort with stress test. 4. Please correlate with nuclear medicine images, reported separately. Protocol: Lexiscan Stress ECG Details Stage: REST Duration (min): 2 min : 12 sec HR (bpm): 85 SBP (mmHg): 160 DBP (mmHg): 96 Stage: REST Duration (min): 6 min : 34 sec HR (bpm): 89 SBP (mmHg): 160 DBP (mmHg): 96 Stage: STAGE 1 Duration (min): 0 min : 59 sec HR (bpm): 118 SBP (mmHg): 179 DBP (mmHg): 94 Stage: RECOVERY Duration (min): 1 min : 0 sec HR (bpm): 114 SBP (mmHg): 184 DBP (mmHg): 93 Stage: RECOVERY Duration (min): 2 min : 0 sec HR (bpm): 105 SBP (mmHg): 184 DBP (mmHg): 93 Stage: RECOVERY Duration (min): 3 min : 0 sec HR (bpm): 106 SBP (mmHg): 170 DBP (mmHg): 73 Stage: RECOVERY Duration (min): 3 min : 4 sec HR (bpm): 105 SBP (mmHg): 170 DBP (mmHg): 73 Rest HR: 89 bpm Peak HR: 121 bpm Rest Sys BP: 160 mmHg Peak Sys BP: 184 mmHg Max Pred HR: 150 bpm % Max Pred HR: 81 % Target HR: 128 bpm Max RPP: 22,264 bpm*mmHg BP Response: Normal blood pressure response Termination Reason: Completed protocol Cardiac Symptoms: None Total Time: 1 min : 0 sec Rest Mckeon BP: 96 mmHg Peak Mckeon BP: 93 mmHg Total Dose: 0.4 mg Resting ECG Sinus rhythm, left bundle-branch block, PVCs. Stress ECG Indeterminate ECG due to left bundle branch block. Arrhythmias Frequent stress-induced PVCs. Report Signatures
[2021-01-25] MEDS: amLODIPine BESYLATE 5 MG TABLET 10 MG PO (08:55)
[2021-01-25] MEDS: metFORMIN HCL 500 MG TABLET PO (08:55)
[2021-01-25] MEDS: TIMOLOL MALEATE 0.5% OP SOLN 5 ML BOTTLE 1 DROP RIGHT EYE ×2 (08:56→20:17)
[2021-01-25] MEDS: lisinopriL 20 MG TABLET PO (08:56)
[2021-01-25] MEDS: ASPIRIN 81 MG ENTERIC TABLET PO (08:56)
[2021-01-25] MEDS: BRIMONIDINE TARTRATE 0.2% OP SOLN 5 ML BTL 1 DROP RIGHT EYE ×2 (08:56→20:17)
[2021-01-25] MEDS: hydroCHLOROthiazide 25 MG TABLET PO (08:56)
--- NOTE | 2021-01-25 15:13 | PM.PNCARD ---
Progress Note: A&P Assessment and Plan (1) Abnormal stress test: Code(s): R94.39 - Abnormal result of other cardiovascular function study Status: Acute Assessment and Plan: Discussed the results of her stress test include at length including Small fixed mild infarct apex apical septal, no ischemia. EF 36% given LV dysfunction on nuclear stress test, left bundle-branch block recommend coronary angiography for delineation of coronary anatomy.Lengthy discussion held with the patient. All questions answered to her satisfaction. Discussed risks including but not limited to bleeding, infection, stroke, myocardial infarction, and/or . Patient verbalized understanding and agreed to proceed with plan of care. Review 2D echocardiogram reveals moderate LV dysfunction EF 35-40% with paradoxical septal wall motion. We discussed the importance of clarifying ischemic versus nonischemic etiology particularly given new LBBB and elevated troponin presentation. She is not exhibiting anginal symptoms yet she now presents with incidentally discovered new moderate LV systolic dysfunction of uncertain etiology. She has risk factors including hypertension, dyslipidemia, and diabetes mellitus. Statistically, ischemic etiology more likely. NPO after midnight for coronary angiography in a.m. to delineate coronary anatomy. 28 minutes spent in the care of this patient including at bedside and chart review. (2) Cardiomyopathy: Code(s): I42.9 - Cardiomyopathy, unspecified Status: Acute Assessment and Plan: 2D echocardiogram pending. EF 36% by nuclear stress test consistent moderate LV systolic dysfunction. Add Toprol XL 25 mg daily cardiovascular support and cardiomyopathy (3) Left bundle branch block: Code(s): I44.7 - Left bundle-branch block, unspecified Status: Acute Assessment and Plan: Unknown duration. Echo pending. (4) Elevated troponin: Code(s): R77.8 - Other specified abnormalities of plasma proteins Status: Acute Assessment and Plan: This is probably related to marked hypertension at presentation but cannot exclude underlying CAD and demand ischemia. Continue aspirin 81 mg daily. Continue her other drug regimen without change including statin. Will Keep her NPO after midnight. Lexiscan myocardial perfusion study in the morning. Echocardiogram is also being ordered. (5) Hypertension associated with diabetes: Code(s): E11.59 - Type 2 diabetes mellitus with other circulatory complications; I15.2 - Hypertension secondary to endocrine disorders Status: Acute Assessment and Plan: Markedly elevated at presentation but better controlled at present. (6) PVC (premature ventricular contraction): Code(s): I49.3 - Ventricular premature depolarization Status: Acute Assessment and Plan: Still with PVCs. Potassium 3.6, magnesium 2.0 TSH 1.220. (7) Fall: Qualifiers: Encounter type: initial encounter Qualified Code(s): W19.XXXA - Unspecified fall, initial encounter Code(s): W19.XXXA - Unspecified fall, initial encounter Status: Acute Assessment and Plan: This is not related to arrhythmia nor low blood pressure. I think this is a simple trip and fall situation (8) Hyperlipidemia associated with type 2 diabetes mellitus: Code(s): E11.69 - Type 2 diabetes mellitus with other specified complication; E78.5 - Hyperlipidemia, unspecified Status: Acute Assessment and Plan: On statin Subjective Date/time seen: Date of service: 01/25/21 15:13 Follow-up for left bundle-branch block, elevated troponin, fall, PVCs Patient feels well. She denies chest pain, palpitations or shortness of breath. Patient seen at bedside in the stress lab. She is scared about stress test. telemetry reveals intermittent PVCs. Review of Systems Review of Systems: All systems reviewed & are unremarkable except as noted
--- NOTE | 2021-01-25 16:18 | PM.IMPN ---
Progress Note: A&P Assessment and Plan (1) Elevated troponin: Code(s): R77.8 - Other specified abnormalities of plasma proteins Status: Acute Assessment and Plan: Patient denies any past medical history of coronary artery disease and has not had any chest pain. Pt had lexiscan and had echo this morning, Ef is 36% (2) Laceration of face: Qualifiers: Encounter type: initial encounter Qualified Code(s): S01.81XA - Laceration without foreign body of other part of head, initial encounter Code(s): S01.81XA - Laceration without foreign body of other part of head, initial encounter Status: Acute Assessment and Plan: Continue pain control as needed (3) Fall: Qualifiers: Encounter type: initial encounter Qualified Code(s): W19.XXXA - Unspecified fall, initial encounter Code(s): W19.XXXA - Unspecified fall, initial encounter Status: Acute Assessment and Plan: Appears to be a mechanical fall as the patient denies passing out. PT/OT Order orthostatic Bps (4) Liver mass: Code(s): R16.0 - Hepatomegaly, not elsewhere classified Status: Acute Assessment and Plan: May be a hemiangioma. The patient will need to follow-up with her outpatient doctor. (5) Type 2 diabetes mellitus without complications: Onset Date: ~1999 Qualifiers: Diabetes mellitus terminal worker insulin use: without terminal worker use Qualified Code(s): E11.9 - Type 2 diabetes mellitus without complications Code(s): E11.9 - Type 2 diabetes mellitus without complications Status: Chronic Assessment and Plan: Accu-Cheks, sliding scale insulin coverage, hypoglycemia protocol. Continue metformin (6) Hyperlipidemia: Onset Date: ~1999 Qualifiers: Hyperlipidemia type: unspecified Qualified Code(s): E78.5 - Hyperlipidemia, unspecified Code(s): E78.5 - Hyperlipidemia, unspecified Status: Chronic Assessment and Plan: Continue statin therapy. (7) Essential (primary) hypertension: Onset Date: ~2004 Code(s): I10 - Essential (primary) hypertension Status: Chronic Assessment and Plan: Monitor blood pressure. Continue lisinopril, hydrochlorothiazide, amlodipine. (8) Glaucoma: Qualifiers: Glaucoma type: unspecified Laterality: unspecified laterality Qualified Code(s): H40.9 - Unspecified glaucoma Code(s): H40.9 - Unspecified glaucoma Status: Chronic Assessment and Plan: Continue home eye drops (9) GERD (gastroesophageal reflux disease): Qualifiers: Esophagitis presence: esophagitis presence not specified Qualified Code(s): K21.9 - Gastro-esophageal reflux disease without esophagitis Code(s): K21.9 - Gastro-esophageal reflux disease without esophagitis Status: Chronic Assessment and Plan: Continue H2 ravi Subjective Date/time seen: 01/25/21 16:18 Interval history: 70-year-old diabetic female with known past medical history of chronic hypertension and hyperlipidemia who presented to the hospital today after suffering a ground level fall outside of [employer]. Pt hit her chin and had stitches of her chin. Pt denies chest pain or SOB. describes accidentally fall while shopping. Pt sp lexiscan and echocardiogram Review of Systems Review of Systems: All systems reviewed & are unremarkable except as noted in HPI and below Exam Const: General: cooperative Nutritional Appearance: well nourished Orientation/consciousness: patient oriented x3 HENMT: Head: laceration (On her chin+) General nose exam: Normal external nose present Face and sinus: normal facial exam Eyes: Pupils: Equal, round and reactive pupils present EOM: EOMs intact bilaterally Neck: Neck: supple and no JVD Resp: Effort & Inspection: normal respiratory effort Auscultation: clear to auscultation bilaterally Cardio: Rate: reg
[2021-01-25] MEDS: SIMVASTATIN 10 MG TABLET PO (18:22)
[2021-01-26] VITALS (31 sets, daily range): BP systolic 96–159; BP diastolic 53–79; PULSE 69–99; RESP 12–18; TEMP 36.1–36.6; O2SAT 98–100
[2021-01-26] MEDS: SODIUM CHLORIDE 0.9% IV 1,000 ML 100 ML IV CONT ×2 (09:11→14:05)
[2021-01-26] MEDS: BRIMONIDINE TARTRATE 0.2% OP SOLN 5 ML BTL 1 DROP RIGHT EYE ×2 (09:12→20:36)
[2021-01-26] MEDS: TIMOLOL MALEATE 0.5% OP SOLN 5 ML BOTTLE 1 DROP RIGHT EYE ×2 (09:12→20:36)
[2021-01-26 09:23] LABS: Anion Gap 7 mmol/L (8-16); Blood Urea Nitrogen 20 mg/dL (7-17); Calcium 9.9 mg/dL (8.4-10.2); Carbon Dioxide 32 mmol/L (22-30); Chloride 100 mmol/L (98-107); Estimated CRCL calculation 41 ml/min; Estimated Glomerular Filt Rate 60; Glucose 155 mg/dL (65-105); Potassium 3.6 mmol/L (3.4-5.0); Sodium 139 mmol/L (137-145)
--- NOTE | 2021-01-26 09:50 | P.SEDATION_ITS ---
Moderate Sedation Note-Pt Data Patient Data Diagnosis: New cardiomyopathy, elevated troponin, LBBB Present Complaint: None Procedure to be performed/Plan: Left heart catheterization with selective left and right coronary angiography with left ventriculography and hemodynamics and possible percutaneous intervention and stent implantation Allergies Allergy/AdvReac Type Severity Reaction Status Date / Time azithromycin Allergy Unknown Itching Verified 01/23/21 16:14 Sulfa (Sulfonamide Allergy Unknown palpatition Verified 01/23/21 16:14 Antibiotics) s sulfur dioxide Allergy Unknown palpatition Verified 01/23/21 16:14 s Home Medications Medication Instructions Recorded Confirmed Type acetaminophen 325 mg tablet 325 mg PO Q4H PRN tablet 09/10/19 01/23/21 History simvastatin 10 mg tablet 10 mg PO DAILY #90 tablet 07/31/20 01/23/21 Rx amlodipine 10 mg PO DAILY 01/23/21 01/23/21 History brimonidine-timolol [Combigan] 1 drp RIGHT EYE BID 01/23/21 01/23/21 History lisinopril-hydrochlorothiazide 1 tablet PO DAILY 01/23/21 01/23/21 History metformin 500 mg PO DAILY 01/23/21 01/23/21 History Current Medications: Active Medications Acetaminophen (Acetaminophen 325 Mg Tablet) 650 mg PO Q4H PRN PRN Reason: Mild Pain (1-3) or Fever Last Admin: 01/24/21 20:31 Dose: 650 mg Documented by: Amlodipine Besylate (Amlodipine Besylate 5 Mg Tablet) 10 mg PO DAILY [facility] Last Admin: 01/25/21 08:55 Dose: 10 mg Documented by: Aspirin (Aspirin 81 Mg Enteric Tablet) 81 mg PO [facility] Last Admin: 01/25/21 08:56 Dose: 81 mg Documented by: Brimonidine Tartrate (Brimonidine Tartrate 0.2% Op Soln 5 Ml Btl) 1 drop RIGHT EYE Q12HR [facility] Last Admin: 01/26/21 09:12 Dose: 1 drop Documented by: Hydrochlorothiazide (Hydrochlorothiazide 25 Mg Tablet) [facility] [place] Last Admin: 01/26/21 09:05 Dose: Not Given Documented by: Sodium Chloride (Normal Saline Iv) 1,000 mls @ 100 mls/hr IV CONT .Q10H [facility] Last Admin: 01/26/21 09:11 Dose: 100 mls/hr Documented by: Lisinopril (Lisinopril 20 Mg Tablet) 20 mg PO QAM [facility] Last Admin: 01/26/21 09:05 Dose: Not Given Documented by: Metformin HCl (Metformin Hcl 500 Mg Tablet) 500 mg PO DAILY@0800 [facility] Last Admin: 01/26/21 08:27 Dose: Not Given Documented by: Metoprolol Succinate (Metoprolol Succinate Ext Rel 25 Mg Tabcr) 25 mg PO QAM [facility] Simvastatin (Simvastatin 10 Mg Tablet) 10 mg PO QPM [facility] Last Admin: 01/25/21 18:22 Dose: 10 mg Documented by: Timolol Maleate (Timolol Maleate 0.5% Op Soln 5 Ml Bottle) 1 drop RIGHT EYE Q12HR [facility] Last Admin: 01/26/21 09:12 Dose: 1 drop Documented by: Triamcinolone Acetonide (Triamcinolone Acet/Orabase 0.1% Paste 5 Gm Tube) 1 applic PO BID [facility] Last Admin: 01/26/21 09:16 Dose: Not Given Documented by: Sedation/Anesthesia: No previous sedation/anesthesia problems (including family history). [facility] Past Medical History Medical History Essential (primary) hypertension (~2004) GERD (gastroesophageal reflux disease) Glaucoma H/O barium enema 2017 Hyperlipidemia (~2000) Hyperlipidemia associated with type 2 diabetes mellitus Hypertension associated with diabetes Left bundle branch block Sinusitis Type 2 diabetes mellitus without complications (~1999) Surgical History Surgical History (Reviewed 01/26/21 @ 09:51
--- NOTE | 2021-01-26 09:50 | WPDMODSED ---
Moderate Sedation Note-Pt Data Patient Data Diagnosis: New cardiomyopathy, elevated troponin, LBBB Present Complaint: None Procedure to be performed/Plan: Left heart catheterization with selective left and right coronary angiography with left ventriculography and hemodynamics and possible percutaneous intervention and stent implantation Allergies Allergy/AdvReac Type Severity Reaction Status Date / Time azithromycin Allergy Unknown Itching Verified 01/23/21 16:14 Sulfa (Sulfonamide Allergy Unknown palpatition Verified 01/23/21 16:14 Antibiotics) s sulfur dioxide Allergy Unknown palpatition Verified 01/23/21 16:14 s Home Medications Medication Instructions Recorded Confirmed Type acetaminophen 325 mg tablet 325 mg PO Q4H PRN tablet 09/10/19 01/23/21 History simvastatin 10 mg tablet 10 mg PO DAILY #90 tablet 07/31/20 01/23/21 Rx amlodipine 10 mg PO DAILY 01/23/21 01/23/21 History brimonidine-timolol [Combigan] 1 drp RIGHT EYE BID 01/23/21 01/23/21 History lisinopril-hydrochlorothiazide 1 tablet PO DAILY 01/23/21 01/23/21 History metformin 500 mg PO DAILY 01/23/21 01/23/21 History Current Medications: Active Medications Acetaminophen (Acetaminophen 325 Mg Tablet) 650 mg PO Q4H PRN PRN Reason: Mild Pain (1-3) or Fever Last Admin: 01/24/21 20:31 Dose: 650 mg Documented by: Amlodipine Besylate (Amlodipine Besylate 5 Mg Tablet) 10 mg PO DAILY [facility] Last Admin: 01/25/21 08:55 Dose: 10 mg Documented by: Aspirin (Aspirin 81 Mg Enteric Tablet) [facility] Last Admin: 01/25/21 08:56 Dose: 81 mg Documented by: Brimonidine Tartrate (Brimonidine Tartrate 0.2% Op Soln 5 Ml Btl) 1 drop RIGHT EYE Q12HR [facility] Last Admin: 01/26/21 09:12 Dose: 1 drop Documented by: Hydrochlorothiazide (Hydrochlorothiazide 25 Mg Tablet) [facility] Last Admin: 01/26/21 09:05 Dose: Not Given Documented by: Sodium Chloride (Normal Saline Iv) 1,000 mls @ 100 mls/hr IV CONT .Q10H [facility] Last Admin: 01/26/21 09:11 Dose: 100 mls/hr Documented by: Lisinopril (Lisinopril 20 Mg Tablet) 20 mg PO QAM [facility] Last Admin: 01/26/21 09:05 Dose: Not Given Documented by: Metformin HCl (Metformin Hcl 500 Mg Tablet) 500 mg PO DAILY@0800 [facility] Last Admin: 01/26/21 08:27 Dose: Not Given Documented by: Metoprolol Succinate (Metoprolol Succinate Ext Rel 25 Mg Tabcr) 25 mg PO QAM [facility] Simvastatin (Simvastatin 10 Mg Tablet) 10 mg PO QPM [facility] Last Admin: 01/25/21 18:22 Dose: 10 mg Documented by: Timolol Maleate (Timolol Maleate 0.5% Op Soln 5 Ml Bottle) 1 drop RIGHT EYE Q12HR [facility] Last Admin: 01/26/21 09:12 Dose: 1 drop Documented by: Triamcinolone Acetonide (Triamcinolone Acet/Orabase 0.1% Paste 5 Gm Tube) 1 applic PO BID [facility] Last Admin: 01/26/21 09:16 Dose: Not Given Documented by: Sedation/Anesthesia: No previous sedation/anesthesia problems (including family history). [facility] Past Medical History Medical History Essential (primary) hypertension (~2005) GERD (gastroesophageal reflux disease) Glaucoma H/O barium enema 2017 Hyperlipidemia (~2000) Hyperlipidemia associated with type 2 diabetes mellitus Hypertension associated with diabetes Left bundle branch block Sinusitis Type 2 diabetes mellitus without complications (~2000) Surgical History Surgical History H/O colonoscopy 2017 S/P iridectomy Family History Family History Mother Diabetes mellitus Hypertension Sibling Diabetes mellitus Hypertension Glaucoma, Onset Age: 65 older sister Malignant neoplasm of prostate, Onset Age: 55 older brother Heart disease, Onset Age: 65 1/2 older sister: by mother Carcinoma of colon, Onset Age: 55 biological sister Father Glaucoma Other Family history of colonic diverticulitis Family history of glaucoma
--- NOTE | 2021-01-26 09:51 | PM.PROC ---
Procedure Note - Detailed Date of procedure: 01/26/21 Pre-op diagnosis: positive troponin, CAP, facial laceration Procedure performed: BRIEF HISTORY OF PRESENT ILLNESS: Patient is a pleasant 70-year-old female with past medical history significant for hypertension, diabetes mellitus, dyslipidemia admitted after a fall found to have elevated troponin, left bundle branch block of unknown chronicity and abnormal stress test with new diagnosis moderate LV systolic dysfunction EF 35-40% referred for coronary angiography for delineation of her coronary anatomy. PROCEDURES PERFORMED: 1. Left heart catheterization 2. Selective left and right coronary angiography 3. Left ventriculography and hemodynamics 4. Moderate/conscious sedation administration CATHETERS UTILIZED: Left coronary system- 5 [place]an JL4 catheter Right coronary system- 5 Singaporean JR4 catheter Left ventriculography and hemodynamics- 5 Singaporean angled pigtail catheter MODERATE SEDATION/ANESTHESIA ADMINISTRATION: Patient reports no prior problems with sedation/anesthesia. Please see pre-sedation noted for physical examination documentation. Sedation start time was 1040 and end time was 1102 for a total intra-service/procedure face-face time of 22 minutes. A total of 1 mg intravenous Versed and a total of 50 mcg intravenous Fentanyl in multiple divided doses was administered for moderate sedation. Moderate sedation was administered by qualified/certified observer Heather Franklin RN under my supervision with intra-procedure [id number] observation and management throughout the entirety of the procedure. There were no other issues or complications and patient tolerated the procedure well. See post-anesthesia documentation. Description of procedure: PROCEDURE IN DETAIL: After verbal and written informed consent was obtained the patient, risks, benefits, and alternatives explained in detail the patient agreed to proceed with the plan of care as outlined above. The patient was subsequently brought to the cardiac catheterization lab, placed on the cardiac catheterization table, and prepped and draped in the usual sterile fashion. Utilizing approximately 14cc of 1% subcutaneous Lidocaine, the right groin was then locally anesthetized. Utilizing the modified Seldinger technique, a 5 Singaporean arterial vascular access sheath was inserted in the right common femoral artery easily and without complications. Through this access, coronary angiography was subsequently obtained in multiple standard re-projections. Following this, a 5 [place]an angled pigtail catheter was advanced retrograde across aortic valve into the cavity of the left ventricle. Left ventriculography was performed and pullback across aortic valve was subsequently recorded. The vascular access sheath and angiographic catheters were flushed before and after catheter exchanges. At the conclusion of the diagnostic portion of the procedure, all angiographic guidewires and catheters were removed and the 5 [place]an arterial vascular access sheath was then pulled and satisfactory hemostasis was achieved using manual compression. There no complications noted at the conclusion of the diagnostic portion of the study. Implants: N/A Anesthesia: local and other (moderate/conscious sedation) Surgeon: Jose Millan MD Drains: No Packing: No Pathology: none sent Complications: No immediate complications Condition: stable Disposition: floor Findings: CORONARY ANGIOGRAPHY: The LEFT MAIN was short and arose from the left coronary cusp and was angiographically normal. The left main then bifurcated into the left anterior descending artery and circumflex coronary artery. LEFT ANTERIOR DESCENDING ARTERY: Large caliber vessel extending to and wrapping the LV apex giving rise to moderate-sized 1st and 2nd diagonal branch. there was a very mild proximal 10-20% stenosis in the LAD. CIRCUMFLEX CORONARY ARTERY: Moderate caliber nondominant vessel angiographically norm
--- NOTE | 2021-01-26 10:19 | P.PNIM_ITS ---
Progress Note: A&P Assessment and Plan (1) Abnormal stress test: Code(s): R94.39 - Abnormal result of other cardiovascular function study Status: Acute Assessment and Plan: Patient had come into the hospital after sustaining a fall. Troponin was ordered and elevated. Cardiology was consulted and performed an echocardiogram which showed left ventricular systolic function that is moderately reduced with an EF of 35-40%. Mild LVH. Left ventricle septal wall motion is abnormal with septum motion related to bundle-branch block. Grade 1 diastolic dysfunction. Due to moderately reduced EF patient had a Lexiscan stress test which showed Small area of mild infarct involving left ventricular apex and apical septal segment. Global hypokinesis with left ventricular ejection fraction measuring 36%. Cardiology felt the next step would be to perform a cardiac catheterization to further evaluate arteries and need for possible stent placement. * Patient is feeling well this time and is going for cardiac catheterization and about an hour. * Appreciate cardiology's input. Continue monitoring. (2) Cardiomyopathy: Code(s): I42.9 - Cardiomyopathy, unspecified Status: Acute Assessment and Plan: See above (3) Left bundle branch block: Code(s): I44.7 - Left bundle-branch block, unspecified Status: Acute Assessment and Plan: See above (4) Elevated troponin: Code(s): R77.8 - Other specified abnormalities of plasma proteins Status: Acute Assessment and Plan: See above. (5) Laceration of face: Qualifiers: Encounter type: initial encounter Qualified Code(s): S01.81XA - Laceration without foreign body of other part of head, initial encounter Code(s): S01.81XA - Laceration without foreign body of other part of head, initial encounter Status: Acute Assessment and Plan: Patient had lack repair in the emergency department.Continue pain control as needed (6) Fall: Qualifiers: Encounter type: initial encounter Qualified Code(s): W19.XXXA - Unspecified fall, initial encounter Code(s): W19.XXXA - Unspecified fall, initial encounter Status: Acute Assessment and Plan: Appears to be a mechanical fall as the patient denies passing out. PT/OT * Patient was found to be orthostatic this morning so IV fluids will be started on her prior to her procedure. * Recheck orthostatics in the morning. (7) Liver mass: Code(s): R16.0 - Hepatomegaly, not elsewhere classified Status: Acute Assessment and Plan: Maybe a hemiangioma and appears to be stable from prior imaging in 2017. The patient will need to follow-up with her outpatient doctor. (8) Type 2 diabetes mellitus without complications: Onset Date: ~1999 Qualifiers: Diabetes mellitus [facility] insulin use: without [facility] use Qualified Code(s): E11.9 - Type 2 diabetes mellitus without complications Code(s): E11.9 - Type 2 diabetes mellitus without complications Status: Chronic Assessment and Plan: Hemoglobin A1c is 6.7%. Well controlled. Continue metformin Continue monitoring glucose Accu-Cheks, sliding scale insulin coverage, hyp
--- NOTE | 2021-01-26 10:25 | PC.NURSE ---
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
--- NOTE | 2021-01-26 14:10 | PC.NURSE ---
Patient returned to room following cardiac cath.
[2021-01-26] MEDS: ASPIRIN 81 MG ENTERIC TABLET PO (17:22)
[2021-01-26] MEDS: SIMVASTATIN 10 MG TABLET PO (17:22)
--- NOTE | 2021-01-26 21:22 | PC.NURSE ---
Pt walked to ICU elevators and back without issues. Hr remained in 90s with no reported dyspnea
[2021-01-27] VITALS (15 sets, daily range): BP systolic 108–147; BP diastolic 59–82; PULSE 69–101; RESP 16–18; TEMP 36.1–36.7; O2SAT 98–100
[2021-01-27 05:47] LABS: Anion Gap 4 mmol/L (8-16); Blood Urea Nitrogen 17 mg/dL (7-17); Calcium 9.2 mg/dL (8.4-10.2); Carbon Dioxide 29 mmol/L (22-30); Chloride 104 mmol/L (98-107); Estimated CRCL calculation 55 ml/min; Estimated Glomerular Filt Rate > 60; Glucose 107 mg/dL (65-105); Potassium 3.6 mmol/L (3.4-5.0); Sodium 137 mmol/L (137-145)
[2021-01-27] MEDS: metFORMIN HCL 500 MG TABLET PO (09:20)
[2021-01-27] MEDS: TIMOLOL MALEATE 0.5% OP SOLN 5 ML BOTTLE 1 DROP RIGHT EYE (09:21)
[2021-01-27] MEDS: BRIMONIDINE TARTRATE 0.2% OP SOLN 5 ML BTL 1 DROP RIGHT EYE (09:21)
[2021-01-27] MEDS: ASPIRIN 81 MG ENTERIC TABLET PO (10:37)
[2021-01-27] MEDS: lisinopriL 20 MG TABLET PO (10:37)
[2021-01-27] MEDS: METOPROLOL SUCCINATE EXT REL 25 MG TABCR PO (10:37)
--- NOTE | 2021-01-27 12:45 | PM.PNCARD ---
Progress Note: A&P Assessment and Plan (1) Abnormal stress test: Code(s): R94.39 - Abnormal result of other cardiovascular function study Status: Acute Assessment and Plan: Minimal nonobstructive CAD 10-20% proximal LAD. Continue aspirin, statin therapy. Consistent with nonischemic cardiomyopathy. stable for discharge home from cardiac perspective as noted below. (2) Cardiomyopathy: Code(s): I42.9 - Cardiomyopathy, unspecified Status: Acute Assessment and Plan: EF 35-40% by echocardiogram EF 36% by nuclear stress test consistent moderate LV systolic dysfunction. continue Toprol XL 25 mg daily cardiovascular support and cardiomyopathy Nonobstructive CAD ASA 81mg daily, statin. (3) Orthostatic hypotension: Code(s): I95.1 - Orthostatic hypotension Status: Acute Assessment and Plan: improved but not resolved. Asymptomatic. Possible autonomic dysfunction underlying. Caution with ambulation, avoid intravascular volume depletion. Discontinue hydrochlorothiazide and amlodipine. Will give Toprol XL and lisinopril today. Monitor blood pressure closely now and as an outpatient. If orthostasis relatively unremarkable, patient remains asymptomatic and BP under fair control SBP less than 150 mmHg may be discharged home to follow up as an outpatient with Dr. Guzman in 4 weeks. (4) Left bundle branch block: Code(s): I44.7 - Left bundle-branch block, unspecified Status: Acute Assessment and Plan: Unknown duration. (5) Hypertension associated with diabetes: Code(s): E11.59 - Type 2 diabetes mellitus with other circulatory complications; I15.2 - Hypertension secondary to endocrine disorders Status: Acute Assessment and Plan: Markedly elevated at presentation but better controlled at present. (6) Elevated troponin: Code(s): R77.8 - Other specified abnormalities of plasma proteins Status: Acute Assessment and Plan: This is probably related to marked hypertension at presentation , minimal nonobstructive CAD on cardiac catheterization. Nonischemic cardiomyopathy. (7) PVC (premature ventricular contraction): Code(s): I49.3 - Ventricular premature depolarization Status: Acute Assessment and Plan: Beta-ravi added. Stable. (8) Fall: Qualifiers: Encounter type: initial encounter Qualified Code(s): W19.XXXA - Unspecified fall, initial encounter Code(s): W19.XXXA - Unspecified fall, initial encounter Status: Acute Assessment and Plan: This is not related to arrhythmia nor low blood pressure. I think this is a simple trip and fall situation Possibly contributed but orthostasis, however, BP uncontrolled on presentation, labile HTN. (9) Hyperlipidemia associated with type 2 diabetes mellitus: Code(s): E11.69 - Type 2 diabetes mellitus with other specified complication; E78.5 - Hyperlipidemia, unspecified Status: Acute Assessment and Plan: On statin goal LDL<70 Subjective Date/time seen: Date of service:01/27/21 12:45 Follow-up for new cardiomyopathy, LBBB, elevated troponin status post cardiac catheterization. Patient feels well. Denies dizziness or lightheadedness. No chest pain or shortness of breath. Patient has been orthostatic but asymptomatic. Coronary angiography yesterday nonischemic cardiomyopathy minimal nonobstructive CAD and proximal LAD. Discussed at length with the patient. Patient feel well and would like to be discharged possible later today. orthostatics improved today. Review of Systems Review of Systems: All systems reviewed & are unremarkable except as noted in HPI and below Constitutional: Constitutional: Denies fatigue, Denies headache(s) and Denies weakness Eyes: Eyes: Denies blurry vision ENT: Reports Normal hearing present, Denies headache(s) and Denies neck pain Cardiovascular: Cardiovascular: Denies ches
--- NOTE | 2021-01-27 13:33 | PM.IMPN ---
Progress Note: A&P Assessment and Plan (1) Abnormal stress test: Code(s): R94.39 - Abnormal result of other cardiovascular function study Status: Acute Assessment and Plan: Patient had come into the hospital after sustaining a fall. Troponin was ordered and elevated. Cardiology was consulted and performed an echocardiogram which showed left ventricular systolic function that is moderately reduced with an EF of 35-40%. Mild LVH. Left ventricle septal wall motion is abnormal with septum motion related to bundle-branch block. Grade 1 diastolic dysfunction. Due to moderately reduced EF patient had a Lexiscan stress test which showed Small area of mild infarct involving left ventricular apex and apical septal segment. Global hypokinesis with left ventricular ejection fraction measuring 36%. Cardiology felt the next step would be to perform a cardiac catheterization to further evaluate arteries and need for possible stent placement. Patient is feeling well this time and is going for cardiac catheterization and about an hour. Appreciate cardiology's input. Continue monitoring. (2) Cardiomyopathy: Code(s): I42.9 - Cardiomyopathy, unspecified Status: Acute Assessment and Plan: See above (3) Left bundle branch block: Code(s): I44.7 - Left bundle-branch block, unspecified Status: Acute Assessment and Plan: See above (4) Elevated troponin: Code(s): R77.8 - Other specified abnormalities of plasma proteins Status: Acute Assessment and Plan: See above. (5) Laceration of face: Qualifiers: Encounter type: initial encounter Qualified Code(s): S01.81XA - Laceration without foreign body of other part of head, initial encounter Code(s): S01.81XA - Laceration without foreign body of other part of head, initial encounter Status: Acute Assessment and Plan: Patient had lack repair in the emergency department.Continue pain control as needed (6) Fall: Qualifiers: Encounter type: initial encounter Qualified Code(s): W19.XXXA - Unspecified fall, initial encounter Code(s): W19.XXXA - Unspecified fall, initial encounter Status: Acute Assessment and Plan: Appears to be a mechanical fall as the patient denies passing out. PT/OT Patient was found to be orthostatic this morning so IV fluids will be started on her prior to her procedure. Recheck orthostatics in the morning. (7) Liver mass: Code(s): R16.0 - Hepatomegaly, not elsewhere classified Status: Acute Assessment and Plan: Maybe a hemiangioma and appears to be stable from prior imaging in 2017. The patient will need to follow-up with her outpatient doctor. 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 Well controlled. Continue metformin Continue monitoring glucose Accu-Cheks, sliding scale insulin coverage, hypoglycemia protocol. (9) Hyperlipidemia: Onset Date: ~1999 Qualifiers: Hyperlipidemia type: unspecified Qualified Code(s): E78.5 - Hyperlipidemia, unspecified Code(s): E78.5 - Hyperlipidemia, unspecified Status: Chronic Assessment and Plan: Continue statin therapy.
--- NOTE | 2021-01-27 15:29 | PM.DS ---
DS: Admitting Diagnosis Admitting Diagnosis Admitting Diagnosis: Fall DS: Discharge Diagnosis Discharge Diagnosis (1) Abnormal stress test: Code(s): R94.39 - Abnormal result of other cardiovascular function study Status: Acute Assessment and Plan: Patient with a history of DM, HTN, HLD, who presented to the ER had come into the hospital after sustaining a fall. Troponin was ordered and elevated. Cardiology was consulted and performed an echocardiogram which showed left ventricular systolic function that is moderately reduced with an EF of 35-40%. Mild LVH. Left ventricle septal wall motion is abnormal with septum motion related to bundle-branch block. Grade 1 diastolic dysfunction. Due to moderately reduced EF patient had a Lexiscan stress test which showed Small area of mild infarct involving left ventricular apex and apical septal segment. Global hypokinesis with left ventricular ejection fraction measuring 36%. Cardiology performed a cardiac catheterization which showed one area with stenosis of 10-20%. Otherwise reduced EF. Patient was orthostatic and Cardiology recommended continuing Toprol XL 25 mg, Lisinopril 20 mg and discontinuing HCTZ and Norvasc. Patients recheck orthostatics were normal, asymptomatic with Sean Hose on. Explained the patient needs to wear Sean Hose during the day. Follow up with Cardiology. She understands and agrees with the plan. All questions answered. (2) Cardiomyopathy: Code(s): I42.9 - Cardiomyopathy, unspecified Status: Acute Assessment and Plan: See above (3) Left bundle branch block: Code(s): I44.7 - Left bundle-branch block, unspecified Status: Acute Assessment and Plan: See above (4) Elevated troponin: Code(s): R77.8 - Other specified abnormalities of plasma proteins Status: Acute Assessment and Plan: See above. (5) Laceration of face: Qualifiers: Encounter type: initial encounter Qualified Code(s): S01.81XA - Laceration without foreign body of other part of head, initial encounter Code(s): S01.81XA - Laceration without foreign body of other part of head, initial encounter Status: Acute Assessment and Plan: Patient had LAC repair with sutures to chin in the emergency department. Follow up with PCP in 1 week for suture removal. (6) Fall: Qualifiers: Encounter type: initial encounter Qualified Code(s): W19.XXXA - Unspecified fall, initial encounter Code(s): W19.XXXA - Unspecified fall, initial encounter Status: Acute Assessment and Plan: Appears to be a mechanical fall as the patient denies passing out. PT/OT Doing well. Discharge home. Orthostatics better. (7) Liver mass: Code(s): R16.0 - Hepatomegaly, not elsewhere classified Status: Acute Assessment and Plan: Maybe a hemiangioma and appears to be stable from prior imaging in 2017. The patient will need to follow-up with her outpatient doctor. (8) Type 2 diabetes mellitus without complications: Onset Date: ~1999 Qualifiers: Diabetes mellitus [facility] insulin use: without [facility] use Qualified Code(s): E11.9 - Type 2 diabetes mellitus without complications Code(s): E11.9 - Type 2 diabetes mellitus without complications Status: Chronic Assessment and Plan: Hemoglobin A1c is 6.7%. Continue metformin. (9) Hyperlipidemia: Onset Date: ~1999 Qualifiers: Hyperlipidemia type: unspecified Qualified Code(s): E78.5 - Hyperlipidemia, unspecifie
--- NOTE | 2021-02-02 10:31 | PC.NURSE ---
Blood cx are negative.
== END 2021-01-27 17:35 | disposition home or self-care (01) | DRG 287 ==
LOC: ANHED 20:18 → ANHIMU 21:13
PROVIDERS: Family Medicine; Internal Medicine Cardiovascular Disease; Admitting Provider Family Medicine; Emergency Provider Nurse Practitioner; PCP Family Medicine; Visit Provider Physician Assistant
PROC: 4A023N7 Measurement of Cardiac Sampling and Pressure, Left Heart, Percutaneous Approach (ICD-10-PCS; CPT 93452; principal; 2021-01-26 09:30)
DX: I25.10 Atherosclerotic heart disease of native coronary artery without angina pectoris (principal); I42.8 Other cardiomyopathies; R77.8 Other specified abnormalities of plasma proteins; S01.81XA Laceration without foreign body of other part of head, initial encounter; W18.30XA Fall on same level, unspecified, initial encounter; I95.1 Orthostatic hypotension; E11.59 Type 2 diabetes mellitus with other circulatory complications; I15.2 Hypertension secondary to endocrine disorders; E11.69 Type 2 diabetes mellitus with other specified complication; E78.5 Hyperlipidemia, unspecified; R16.0 Hepatomegaly, not elsewhere classified; I44.7 Left bundle-branch block, unspecified; I49.3 Ventricular premature depolarization; R93.2 Abnormal findings on diagnostic imaging of liver and biliary tract; R94.39 Abnormal result of other cardiovascular function study; K21.9 Gastro-esophageal reflux disease without esophagitis; H40.9 Unspecified glaucoma; Z79.84 Long term (current) use of oral hypoglycemic drugs; Z79.899 Other long term (current) drug therapy
CPT/HCPCS: 36415; 70450; 70486; 71045; 71275; 72125; 73521; 73562; 78452; 80048; 80053; 81001; 82948; 83735; 84436; 84443; 84484; 85025; 85610; 85730; 87040; 93005; 93017; 93306; 93458; 96365; 97161; 97165; 99285; A9270; A9502; C1887; C1894; G0378; J0360; J0461; J1644; J1956; J2250; J2785; J3010; J7030; J7040; Q9967

== ENCOUNTER 2021-02-08 15:11 | Emergency (ER) | payer MEDICARE, BC, SELFPAY ==
[2021-02-08 15:24] VITALS: BP 191/92; PULSE 88; RESP 16; TEMP 36.9; O2SAT 100
--- NOTE | 2021-02-08 15:32 | ED.WOUNDLAC ---
HPI - Wound/Laceration General Chief Complaint: Wound/Laceration Stated Complaint: suture removal Time Seen by Provider: 02/08/21 15:25 Source: patient, RN notes reviewed and old records reviewed Mode of arrival: ambulatory Limitations: no limitations History of Present Illness HPI narrative: Patient presents today requesting suture removal. Patient had 3 sutures placed in her chin on 01/23/2021 in the [facility] ER after a fall. States she has not been up to coming in for suture removal until today. Denies any problems with her sutures. Related Data Home Medications Medication Instructions Recorded Confirmed amlodipine 10 mg PO DAILY 02/08/21 02/08/21 aspirin 81 mg PO DAILY 02/08/21 02/08/21 brimonidine-timolol [Combigan] 2 drp EACH EYE DAILY 02/08/21 02/08/21 lisinopril-hydrochlorothiazide 20 tablet PO DAILY 02/08/21 02/08/21 metformin 500 mg PO BID 02/08/21 02/08/21 metoprolol succinate 25 mg PO DAILY 02/08/21 02/08/21 simvastatin 10 mg PO DAILY 02/08/21 02/08/21 Allergies Allergy/AdvReac Type Severity Reaction Status Date / Time Sulfa (Sulfonamide Allergy Intermediate Palpitation Verified 02/08/21 15:15 Antibiotics) s sulfur dioxide Allergy Intermediate Palpitation Verified 02/08/21 15:15 s azithromycin Allergy Mild Itching Verified 02/08/21 15:15 Review of Systems Review of Systems: Narrative: CONSTITUTIONAL: Denies body aches, fever, chills, or sweats. EYES: Denies visual changes, redness, or discharge. ENT: Denies rhinorrhea, congestion, sore throat, or otalgia. CARDIOVASCULAR: Denies chest pain, palpitations, or edema. RESPIRATORY: Denies cough or dyspnea. GASTROINTESTINAL: Denies abdominal pain, nausea, vomiting, or diarrhea. GENITOURINARY: Denies dysuria or hematuria. SKIN: Denies rash, itching. + Sutures to chin MUSCULOSKELETAL: Denies back pain, joint pain, or myalgia. NEUROLOGIC: Denies headache, numbness, tingling, or weakness. PSYCH: Denies depression or anxiety. [facility] Past Medical History Medical History Essential (primary) hypertension (~2004) GERD (gastroesophageal reflux disease) Glaucoma H/O barium enema 2017 Hyperlipidemia (~2000) Hyperlipidemia associated with type 2 diabetes mellitus Hypertension associated with diabetes Left bundle branch block Sinusitis Type 2 diabetes mellitus without complications (~1999) Surgical History Surgical History H/O colonoscopy 2017 S/P iridectomy Family History Family History Mother Diabetes mellitus Hypertension Sibling Diabetes mellitus Hypertension Glaucoma, Onset Age: 65 older sister Malignant neoplasm of prostate, Onset Age: 55 older brother Heart disease, Onset Age: 65 1/2 older sister: by mother Carcinoma of colon, Onset Age: 55 biological sister Father Glaucoma Other Family history of colonic diverticulitis Family history of glaucoma Social History Social History Smoking status: Never smoker Second hand tobacco smoke exposure: Yes Alcohol intake: never Substance use: never Substance use type: does not use Gender identity (if verbalized by the patient): Female Spiritual care concerns: No Comments At time of signature, I have reviewed and agree with nursing past medical, surgical, social and family history unless otherwise noted. Please see nursing chart for further information. There is no relevant family history pertinent to the presenting complaint Exam Narrative: Exam Narrative: GENERAL: Well-appearing, well-nourished, and in no acute distress. HEAD: Normocephalic, atraumatic. EYES: EOMI. No redness or drainage. Conjunctivae normal. ENT: Mucous membranes pink and moist. NECK: Normal AROM. CHEST:
[2021-02-08 15:38] VITALS: BP 179/93; PULSE 83
== END 2021-02-08 15:36 | disposition home or self-care (01) ==
PROVIDERS: Emergency Provider Nurse Practitioner; PCP Family Medicine
DX: S01.81XD Laceration without foreign body of other part of head, subsequent encounter (principal); W19.XXXD Unspecified fall, subsequent encounter; I10 Essential (primary) hypertension; K21.9 Gastro-esophageal reflux disease without esophagitis; E78.5 Hyperlipidemia, unspecified; E11.39 Type 2 diabetes mellitus with other diabetic ophthalmic complication; H40.9 Unspecified glaucoma; H42 Glaucoma in diseases classified elsewhere
CPT/HCPCS: 99211; G0463

== ENCOUNTER 2021-02-16 12:52 | Outpatient (CLI) | payer MEDICARE, BC, SELFPAY ==
[2021-02-16 14:01] LABS: Anion Gap 3 mmol/L (8-16); Blood Urea Nitrogen 15 mg/dL (7-17); Calcium 9.6 mg/dL (8.4-10.2); Carbon Dioxide 31 mmol/L (22-30); Chloride 105 mmol/L (98-107); Estimated Glomerular Filt Rate > 60; Glucose 99 mg/dL (65-105); Potassium 4.1 mmol/L (3.4-5.0); Sodium 139 mmol/L (137-145)
== END 2021-02-16 12:53 | disposition home or self-care (01) ==
LOC: ANHLAB 12:57
PROVIDERS: PCP Family Medicine; Visit Provider Nurse Practitioner Adult Health
DX: I42.8 Other cardiomyopathies (principal)
CPT/HCPCS: 36415; 80048

== ENCOUNTER 2021-03-15 11:06 | Outpatient (CLI) | payer MEDICARE, BC, SELFPAY ==
[2021-03-15 11:33] LABS: Anion Gap 6 mmol/L (8-16); Blood Urea Nitrogen 19 mg/dL (7-17); Calcium 9.1 mg/dL (8.4-10.2); Carbon Dioxide 26 mmol/L (22-30); Chloride 109 mmol/L (98-107); Estimated Glomerular Filt Rate 60; Glucose 196 mg/dL (65-105); Sodium 141 mmol/L (137-145)
== END 2021-03-15 11:07 | disposition home or self-care (01) ==
LOC: ANHLAB 11:09
PROVIDERS: PCP Family Medicine; Visit Provider Nurse Practitioner Adult Health
DX: I42.8 Other cardiomyopathies (principal)
CPT/HCPCS: 36415; 80048

== ENCOUNTER 2021-03-23 21:25 | Emergency (ER) | payer MEDICARE, BC, SELFPAY ==
[2021-03-23 21:46] VITALS: BP 173/100; PULSE 87; RESP 16; TEMP 36.4; O2SAT 100
--- NOTE | 2021-03-23 22:32 | PC.NURSE ---
pt leaving prior to seeing provider. pt was seen by triage nurse. pt encouraged to return to ed if condition changes/worsens
--- NOTE | 2021-03-23 22:33 | PC.NURSE ---
pt states feeling better at time of departure
== END 2021-03-23 22:33 | disposition left against medical advice (07) ==
PROVIDERS: PCP Family Medicine
DX: R10.9 Unspecified abdominal pain (principal)
CPT/HCPCS: 99199

== ENCOUNTER 2021-04-06 12:19 | Outpatient (CLI) | payer MEDICARE, BC, SELFPAY ==
[2021-04-06 12:53] LABS: Anion Gap 5 mmol/L (8-16); Blood Urea Nitrogen 18 mg/dL (7-17); Calcium 9.2 mg/dL (8.4-10.2); Carbon Dioxide 28 mmol/L (22-30); Chloride 108 mmol/L (98-107); Estimated Glomerular Filt Rate > 60; Glucose 143 mg/dL (65-105); Sodium 141 mmol/L (137-145)
== END 2021-04-06 12:20 | disposition home or self-care (01) ==
PROVIDERS: PCP Family Medicine; Visit Provider Nurse Practitioner Adult Health
DX: I50.22 Chronic systolic (congestive) heart failure (principal)
CPT/HCPCS: 36415; 80048

== ENCOUNTER 2021-04-08 16:29 | Outpatient (CLI) | payer MEDICARE, BC, SELFPAY ==
[2021-04-08 17:03] LABS: Basophils Percent Auto 0.3 % (0.2-1.2); Eosinophils Absolute Auto 0.1 K/mm3 (0-0.3); Eosinophils Percent Auto 1.9 % (0-4.4); Hematocrit 39.7 % (37.0-47.0); Hemoglobin 12.2 g/dL (12.0-15.0); Immature Granulocyte Absolute 0.02 K/mm3 (0.00-0.031); Immature Granulocyte Percent A 0.3 % (0-0.5); Lymphocytes Absolute Auto 1.98 K/mm3 (0.9-3.2); Mean Corpuscular HGB Conc 30.7 g/dl (32-36); Mean Corpuscular Hemoglobin 27.6 pg (26-34); Mean Corpuscular Volume 89.8 fl (80-100); Monocytes Absolute Auto 0.5 K/mm3 (0.1-0.6); Monocytes Percent Auto 6.7 % (2.6-8.5); Neutrophils Absolute Auto 4.2 K/mm3 (1.3-6.7); Neutrophils Percent Auto 61.8 % (45.5-73.1); Platelet Count Result 180 k/mm3 (150-375); Red Blood Count 4.42 M/mm3 (4.2-5.4); White Blood Count 6.8 K/mm3 (4.5-10.0)
[2021-04-08 18:29] LABS: Vitamin D 25 Hydroxy 65.2 ng/mL
== END 2021-04-08 16:30 | disposition home or self-care (01) ==
LOC: ANHLAB 16:32
PROVIDERS: PCP Family Medicine; Visit Provider Family Medicine
DX: R53.83 Other fatigue (principal); E55.9 Vitamin D deficiency, unspecified
CPT/HCPCS: 36415; 82306; 85025

== ENCOUNTER 2021-05-02 13:55 | Emergency (ER) | payer MEDICARE, BC, SELFPAY ==
[2021-05-02 14:02] VITALS: BP 143/71; PULSE 48; RESP 16; TEMP 36.6; O2SAT 100
--- NOTE | 2021-05-02 14:29 | ED.GENADULT ---
HPI - General Adult General Chief complaint: Recheck/Abnormal Lab/Rx Stated complaint: BLOOD PRESSURE CHECK Time Seen by Provider: 05/02/21 14:20 Source: patient and RN notes reviewed Mode of arrival: ambulatory Limitations: no limitations History of Present Illness HPI narrative: Patient presents today complaining of feeling woozy after she had a bowel movement at home around noon today. After this, she took her blood pressure and the reading was 98/62. 40 minutes later she took it again and it was 102/60, 20 minutes after that at 1300 she took it again and it was 122/66. From noon to 1300, patient progressively felt better and is now feeling normal. She came to [facility] today to get her blood pressure checked. Upon arrival it was 143/71 with a pulse of 48. She currently takes carvedilol and Entresto for her blood pressure, prescribed by her reworker. Denies nausea, vomiting, chest pain, shortness of breath, vision changes, headache. States that she is currently feeling like I normally do. MD complaint: Low blood pressure Related Data Home Medications Medication Instructions Recorded Confirmed aspirin 81 mg PO DAILY 02/08/21 03/02/21 brimonidine-timolol [Combigan] 2 drp EACH EYE DAILY 02/08/21 03/02/21 metformin 500 mg PO DAILY 02/08/21 03/02/21 simvastatin 10 mg PO DAILY 02/08/21 03/02/21 biotin 1,000 mcg PO DAILY 03/02/21 03/02/21 calcium carbonate-vitamin D3 1 tablet PO DAILY 03/02/21 03/02/21 [Calcium 500 + D] calcium-vit Z1-bhu-neghlmcul 1 cap PO DAILY 03/02/21 03/02/21 famotidine 20 mg PO BID 03/02/21 03/02/21 omega-3 fatty acids [[place] 3 Fish 1,000 mg PO DAILY 03/02/21 03/02/21 Oil] spironolactone 25 mg PO DAILY 03/02/21 03/02/21 vit C,N-Wb-eogyv-lutein-zeaxan 2 tablet PO BID 03/02/21 03/02/21 [PreserVision AREDS-2] sacubitril-valsartan [Entresto] 24 - 26 tablet PO BID 03/04/21 03/04/21 furosemide 40 mg PO DAILY 03/22/21 04/07/21 carvedilol 6.25 mg PO BID 03/31/21 04/07/21 Allergies Allergy/AdvReac Type Severity Reaction Status Date / Time Sulfa (Sulfonamide Allergy Intermediate Palpitation Verified 05/02/21 14:03 Antibiotics) s sulfur dioxide Allergy Intermediate Palpitation Verified 05/02/21 14:03 s azithromycin Allergy Mild Itching Verified 05/02/21 14:03 Review of Systems Review of Systems: CONSTITUTIONAL: Denies body aches, fever, chills, or sweats. EYES: Denies visual changes, redness, or discharge. ENT: Denies rhinorrhea, congestion, sore throat, or otalgia. CARDIOVASCULAR: Denies chest pain, palpitations, or edema. RESPIRATORY: Denies cough or dyspnea. GASTROINTESTINAL: Denies abdominal pain, nausea, vomiting, or diarrhea. GENITOURINARY: Denies dysuria or hematuria. SKIN: Denies rash, itching, or wounds. MUSCULOSKELETAL: Denies back pain, joint pain, or myalgia. NEUROLOGIC: Denies headache, numbness, tingling, or weakness. PSYCH: Denies depression or anxiety. [facility] Past Medical History Medical History Essential (primary) hypertension (~2004) GERD (gastroesophageal reflux disease) Glaucoma H/O barium enema 2017 Hyperlipidemia (~2000) Hyperlipidemia associated with type 2 diabetes mellitus Hypertension associated with diabetes Left bundle branch block Sinusitis Type 2 diabetes mellitus without complications (~2000) Surgical History Surgical History H/O colonoscopy 2017 S/P iridectomy Family History Family History Mother Diabetes mellitus Hypertension Sibling Malignant neoplasm of prostate, Onset Age: 55 older brother Diabetes mellitus Heart disease, Onset Age: 65 1/2 older sister: by mother Carcinoma of colon, Onset Age: 55 biological sister Glaucoma, Onset Age: 65 older sister Hypertension Hyperlipemia Father Glaucoma Other
== END 2021-05-02 14:50 | disposition home or self-care (01) ==
PROVIDERS: Emergency Provider Nurse Practitioner; PCP Family Medicine
DX: R55 Syncope and collapse (principal); I10 Essential (primary) hypertension; K21.9 Gastro-esophageal reflux disease without esophagitis; E11.39 Type 2 diabetes mellitus with other diabetic ophthalmic complication; H42 Glaucoma in diseases classified elsewhere; E78.5 Hyperlipidemia, unspecified
CPT/HCPCS: 99211; G0463

== ENCOUNTER 2021-05-19 16:27 | Outpatient (CLI) | payer MEDICARE, BC, SELFPAY ==
[2021-05-19 17:21] LABS: Anion Gap 5 mmol/L (8-16); Blood Urea Nitrogen 28 mg/dL (7-17); Calcium 9.8 mg/dL (8.4-10.2); Carbon Dioxide 31 mmol/L (22-30); Chloride 104 mmol/L (98-107); Estimated Glomerular Filt Rate 49; Glucose 111 mg/dL (65-110); Potassium 4.4 mmol/L (3.4-5.0); Sodium 140 mmol/L (137-145)
== END 2021-05-19 16:28 | disposition home or self-care (01) ==
PROVIDERS: PCP Family Medicine; Visit Provider Internal Medicine Cardiovascular Disease
DX: I42.8 Other cardiomyopathies (principal)
CPT/HCPCS: 36415; 80048

== ENCOUNTER 2021-05-31 15:00 | Outpatient (RCR) | payer MEDICARE, BC, SELFPAY ==
[2021-03-03 16:28] LABS: Glucose Point of Care 115 mg/dl (65-105)
[2021-03-03 16:28] LABS: Glucose Point of Care 134 mg/dl (65-105)
[2021-03-04 16:11] LABS: Glucose Point of Care 127 mg/dl (65-105)
--- NOTE | 2021-03-24 14:05 | PCCPR ---
Corinne called today and said that she was not feeling well and that she would miss her session today. She stated that her doctor made an additional change to her medicine and she was having a hard time adjusting to the new medication.
== END 2021-05-31 19:30 | disposition home or self-care (01) ==
LOC: ANHCPREHAB 15:00
PROVIDERS: PCP Family Medicine; Visit Provider Nurse Practitioner Adult Health
DX: I50.89 Other heart failure (principal)
CPT/HCPCS: 82948; 93798

== ENCOUNTER 2021-06-28 13:00 | Outpatient (RCR) | payer MEDICARE, SELFPAY ==
[2021-05-25 11:19] VITALS: BMI 22.1
[2021-05-25 11:23] VITALS: BMI 22.1
== END 2021-06-28 15:04 | disposition home or self-care (01) ==
LOC: ANHDMC 13:00
PROVIDERS: PCP Family Medicine; Visit Provider Family Medicine
DX: E11.9 Type 2 diabetes mellitus without complications (principal); I50.42 Chronic combined systolic (congestive) and diastolic (congestive) heart failure; I11.0 Hypertensive heart disease with heart failure; Z71.3 Dietary counseling and surveillance; Z71.89 Other specified counseling
CPT/HCPCS: 97802; G0108

== ENCOUNTER 2021-09-14 12:42 | Emergency (ER) | payer MEDICARE, SELFPAY ==
--- NOTE | 2021-09-14 12:46 | ED.URI ---
HPI - URI/Sore Throat General Chief Complaint: Upper Respiratory Infection Stated Complaint: sinus issues/cough Time Seen by Provider: 09/14/21 12:46 Source: patient and RN notes reviewed History of Present Illness HPI Narrative: Patient is 71-year-old female who presents the urgent care with complaints of sinus congestion, postnasal drainage and mild nonproductive cough. Patient states that her symptoms started on Monday. States that she was feeling nauseated this morning but made a big poop and felt better . Patient states that she has felt feverish but denies of any known fever. 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 Patient is Covid vaccinated and denies of any recent exposures. Patient has not taken anything dtuv-qfu-rqdizvn for her symptoms. Denies of any shortness of breath. No other acute complaints. No acute distress noted. Patient aware of the plan of care. Some parts of this dictation were generated by voice recognition software and may contain typographical and/or grammatical inaccuracies. Related Data Home Medications Medication Instructions Recorded Confirmed aspirin 81 mg PO DAILY 02/08/21 05/02/21 brimonidine-timolol [Combigan] 2 drp EACH EYE DAILY 02/08/21 05/02/21 metformin 500 mg PO DAILY 02/08/21 05/02/21 simvastatin 10 mg PO DAILY 02/08/21 05/02/21 biotin 1,000 mcg PO DAILY 03/02/21 05/02/21 calcium carbonate-vitamin D3 1 tablet PO DAILY 03/02/21 05/02/21 [Calcium 500 + D] calcium-vit L8-pvg-lfjmobzrv 1 cap PO DAILY 03/02/21 05/02/21 famotidine 20 mg PO BID 03/02/21 05/02/21 omega-3 fatty acids [[place] 3 Fish 1,000 mg PO DAILY 03/02/21 05/02/21 Oil] spironolactone 25 mg PO DAILY 03/02/21 05/02/21 vit C,R-Fs-qlvlf-lutein-zeaxan 2 tablet PO BID 03/02/21 05/02/21 [PreserVision AREDS-2] sacubitril-valsartan [Entresto] 24 - 26 tablet PO BID 03/04/21 05/02/21 furosemide 40 mg PO DAILY 03/22/21 05/02/21 carvedilol 6.25 mg PO BID 03/31/21 05/02/21 dapagliflozin [Farxiga] 10 mg PO DAILY 05/24/21 05/24/21 Allergies Allergy/AdvReac Type Severity Reaction Status Date / Time Sulfa (Sulfonamide Allergy Intermediate Palpitation Verified 05/02/21 14:03 Antibiotics) s sulfur dioxide Allergy Intermediate Palpitation Verified 05/02/21 14:03 s azithromycin Allergy Mild Itching Verified 05/02/21 14:03 Review of Systems Review of Systems: CONSTITUTIONAL: Reports of subjective fever EYES: Denies visual changes, redness, or discharge. ENT: Reports of rhinorrhea, congestion, and mild sore throat which has since cleared CARDIOVASCULAR: Denies chest pain, palpitations, or edema. RESPIRATORY: Reports a mild nonproductive cough GASTROINTESTINAL: Denies abdominal pain, nausea, vomiting, or diarrhea. GENITOURINARY: Denies dysuria or hematuria. SKIN: Denies rash or itching. MUSCULOSKELETAL: Denies back pain, joint pain, or myalgia. NEUROLOGIC: Denies headache, numbness, or weakness. All other systems reviewed are negative, except as documented in HPI. [facility] Past Medical History Medical History Essential (primary) hypertension (~2005) GERD (gastroesophageal reflux disease) Glaucoma H/O barium enema 2017 Hyperlipidemia (~2000) Hyperlipidemia associated with type 2 diabetes mellitus Hypertension associated with diabetes Left bundle branch block Sinusitis Type 2 diabetes mellitus without complications (~2000) Surgical History Surgical History H/O colonoscopy 2017 S/P iridectomy Family History Family History Mother Diabetes mellitus Hypertension Sibling Malignant neoplasm of prostate, Onset Age: 55 older brother Diabetes mellitus Heart disease, Onset Age: 65 1/2 older sister: by car
[2021-09-14 12:50] VITALS: BP 141/67; PULSE 84; RESP 16; TEMP 37.1; O2SAT 100
== END 2021-09-14 13:22 | disposition home or self-care (01) ==
PROVIDERS: Emergency Provider Nurse Practitioner Family; PCP Family Medicine
DX: J32.9 Chronic sinusitis, unspecified (principal); Z20.822 Contact with and (suspected) exposure to COVID-19; I10 Essential (primary) hypertension; K21.9 Gastro-esophageal reflux disease without esophagitis; H40.9 Unspecified glaucoma; E78.5 Hyperlipidemia, unspecified; E11.9 Type 2 diabetes mellitus without complications
CPT/HCPCS: 87426; 99213; C9803; G0463

== ENCOUNTER → 2021-10-04 14:06 | Outpatient (CLI) | payer MEDICARE, BC, SELFPAY ==
--- NOTE | ~2021-10-04 | MM_ITS ---
EXAMINATION: MM screening [facility] BI w rebecca HISTORY: Screening mammogram, family history of breast cancer in her sister. TECHNIQUE: Craniocaudal and mediolateral oblique 3-D tomosynthesis images were obtained and synthetic 2-D images were generated. CAD analysis was submitted and interpreted. COMPARISON: 07/28/2020, 02/26/2019, 02/09/2018 BREAST PARENCHYMAL COMPOSITION: The breasts are heterogeneously dense, which may obscure small masses . FINDINGS: Scattered benign-appearing calcifications are present. A stable mass in the middle third of the left breast is considered benign given the lack of interval change. There is no evidence of susp icious mass, calcification, or architectural distortion to suggest malignancy in either breast. There has been no suspicious interval change. IMPRESSION: 1. No mammographic evidence of malignancy. 2. Recommend routine screening mammography in one year. BI-RADS Category 2: Benign finding(s). Reviewed, dictated and finalized at location A. CANDY SPINNER
== END ==
PROVIDERS: PCP Family Medicine; Visit Provider Family Medicine
DX: Z12.31 Encounter for screening mammogram for malignant neoplasm of breast (principal)
CPT/HCPCS: 77063; 77067

== ENCOUNTER 2022-08-04 11:33 | Emergency (ER) | payer MEDICARE, SELFPAY ==
[2022-08-04 11:59] VITALS: BP 103/55; PULSE 81; RESP 16; TEMP 37.1; O2SAT 99
--- NOTE | 2022-08-04 12:41 | ED.URI ---
HPI - URI/Sore Throat General Chief Complaint: Upper Respiratory Infection Stated Complaint: sore throat, congestion, fever Time Seen by Provider: 08/04/22 12:28 Source: patient Mode of arrival: ambulatory Limitations: no limitations History of Present Illness HPI Narrative: Patient presents today with a 2 day history of sore throat, subjective fever, postnasal drip, and cough. Denies shortness of breath or chest pain. She has not been taking any yobv-ahq-ktwfkzm treatment prior to arrival. History of diabetes and, a bad heart. Related Data Home Medications Medication Instructions Recorded Confirmed aspirin 81 mg tablet,delayed 81 mg PO DAILY 02/08/21 08/04/22 release brimonidine 0.2 %-timolol 0.5 % 2 drp EACH EYE DAILY 02/08/21 08/04/22 eye drops (Combigan) metformin 500 mg tablet 500 mg PO DAILY 02/08/21 08/04/22 simvastatin 10 mg tablet 10 mg PO DAILY 02/08/21 08/04/22 biotin 1,000 mcg chewable tablet 1,000 mcg PO DAILY 03/02/21 08/04/22 calcium carbonate 500 mg-vitamin 1 tablet PO DAILY 03/02/21 08/04/22 D3 5 mcg (200 unit) tablet (Calcium 500 + D) calcium-vit W3-vmx-suwiberlt 500 1 cap PO DAILY 03/02/21 08/04/22 mg-40 mg-200 unit-200 mcg capsule famotidine 20 mg tablet 20 mg PO BID 03/02/21 08/04/22 omega-3 fatty acids 1,000 mg PO DAILY 03/02/21 08/04/22 spironolactone 25 mg tablet 25 mg PO DAILY 03/02/21 08/04/22 vit C 250 mg-vit E 90 mg-zinc 40 2 tablet PO BID 03/02/21 08/04/22 mg-copper 1 hc-erejzj-irfntq capsule (PreserVision AREDS-2) sacubitril 24 mg-valsartan 26 mg 24 - 26 tablet PO BID 03/04/21 08/04/22 tablet (Entresto) furosemide 20 mg tablet 40 mg PO DAILY 03/22/21 08/04/22 carvedilol 3.125 mg tablet 6.25 mg PO BID 03/31/21 08/04/22 dapagliflozin 10 mg tablet 10 mg PO DAILY 05/24/21 08/04/22 (Farxiga) Allergies Allergy/AdvReac Type Severity Reaction Status Date / Time Sulfa (Sulfonamide Allergy Intermediate Palpitation Verified 08/04/22 11:55 Antibiotics) s sulfur dioxide Allergy Intermediate Palpitation Verified 08/04/22 11:55 s azithromycin Allergy Mild Itching Verified 08/04/22 11:55 Review of Systems Review of Systems: CONSTITUTIONAL: Denies body aches, chills, or sweats.+ Subjective fever EYES: Denies visual changes, redness, or discharge. ENT: Denies rhinorrhea, congestion, or otalgia.+ sore throat, postnasal drip CARDIOVASCULAR: Denies chest pain, palpitations, or edema. RESPIRATORY: Denies dyspnea.+ cough GASTROINTESTINAL: Denies abdominal pain, nausea, vomiting, or diarrhea. GENITOURINARY: Denies dysuria or hematuria. SKIN: Denies rash, itching, or wounds. MUSCULOSKELETAL: Denies back pain, joint pain, or myalgia. NEUROLOGIC: Denies headache, numbness, tingling, or weakness. PSYCH: Denies depression or anxiety. [facility] Past Medical History Medical History Essential (primary) hypertension (~2005) GERD (gastroesophageal reflux disease) Glaucoma H/O barium enema 2017 Hyperlipidemia (~2000) Hyperlipidemia associated with type 2 diabetes mellitus Hypertension associated with diabetes Left bundle branch block Sinusitis Type 2 diabetes mellitus without complications (~2000) Surgical History Surgical History H/O colonoscopy 2017 S/P iridectomy Family History Family History Mother Diabetes mellitus Hypertension Sibling Malignant neoplasm of prostate, Onset Age: 55 older brother Diabetes mellitus Heart disease, Onset Age: 65 1/2 older sister: by mother Carcinoma of colon, Onset Age: 55 biological sister Glaucoma, Onset Age: 65 older sister Hypertension Hyperlipemia Father Glaucoma Other Family history of colonic diverticulitis Family history of glaucoma Social History Social History (Reviewed 08/04
== END 2022-08-04 13:00 | disposition home or self-care (01) ==
PROVIDERS: Emergency Provider Nurse Practitioner; PCP Family Medicine
DX: U07.1 COVID-19 (principal); I10 Essential (primary) hypertension; K21.9 Gastro-esophageal reflux disease without esophagitis; E78.5 Hyperlipidemia, unspecified; E11.39 Type 2 diabetes mellitus with other diabetic ophthalmic complication; H40.9 Unspecified glaucoma; H42 Glaucoma in diseases classified elsewhere; Z79.84 Long term (current) use of oral hypoglycemic drugs
CPT/HCPCS: 87426; 87804; 99213; C9803; G0463

== ENCOUNTER 2022-08-22 10:28 | Outpatient (CLI) | payer MEDICARE, SELFPAY ==
[2022-08-22 10:50] LABS: Basophils Percent Auto 0.4 % (0.2-1.2); Eosinophils Absolute Auto 0.1 K/mm3 (0-0.3); Eosinophils Percent Auto 1.8 % (0-4.4); Hematocrit 39.2 % (37.0-47.0); Hemoglobin 12.1 g/dL (12.0-15.0); Immature Granulocyte Absolute 0.02 K/mm3 (0.00-0.031); Immature Granulocyte Percent A 0.4 % (0-0.5); Lymphocytes Absolute Auto 1.48 K/mm3 (0.9-3.2); Lymphocytes Percent Auto 27.1 % (18.3-44.2); Mean Corpuscular HGB Conc 30.9 g/dl (32-36); Mean Corpuscular Hemoglobin 28.3 pg (26-34); Mean Corpuscular Volume 91.8 fl (80-100); Mean Platelet Volume 11.1 fl (7.4-10.4); Monocytes Absolute Auto 0.3 K/mm3 (0.1-0.6); Monocytes Percent Auto 6.2 % (2.6-8.5); Neutrophils Absolute Auto 3.5 K/mm3 (1.3-6.7); Neutrophils Percent Auto 64.1 % (45.5-73.1); Platelet Count Result 212 k/mm3 (150-375); Red Blood Count 4.27 M/mm3 (4.2-5.4); Red Cell Distribution Width 13.1 % (11.5-14.5); White Blood Count 5.5 K/mm3 (4.5-10.0)
[2022-08-22 11:08] LABS: Alanine Aminotransferase 14 U/L (6-35); Albumin Level 3.9 g/dL (3.5-5.1); Alkaline Phosphatase 41 U/L (38-126); Anion Gap 5 mmol/L (8-16); Aspartate Amino Transferase 23 U/L (14-36); Bilirubin,Total 0.5 mg/dL (0.2-1.3); Blood Urea Nitrogen 21 mg/dL (7-17); Calcium 9.3 mg/dL (8.4-10.2); Carbon Dioxide 30 mmol/L (22-30); Chloride 106 mmol/L (98-107); Cholesterol 139 mg/dL (0-200); Estimated Glomerular Filt Rate 59; Glucose 101 mg/dL (65-110); HDL Direct 44 mg/dL; Potassium 4.3 mmol/L (3.4-5.0); Sodium 141 mmol/L (137-145); Triglycerides 43 mg/dL (<150)
[2022-08-22 11:12] LABS: Hemoglobin A1C 6.4 % (<5.7)
[2022-08-22 11:19] LABS: LDL Cholesterol Direct 65 mg/dL
[2022-08-22 11:24] LABS: Vitamin D 25 Hydroxy 41.3 ng/mL
== END 2022-08-22 10:29 | disposition home or self-care (01) ==
PROVIDERS: Nurse Practitioner Adult Health; PCP Family Medicine; Visit Provider Family Medicine
DX: E78.5 Hyperlipidemia, unspecified (principal); E55.9 Vitamin D deficiency, unspecified; I10 Essential (primary) hypertension; E11.9 Type 2 diabetes mellitus without complications
CPT/HCPCS: 36415; 80053; 80061; 82306; 83036; 85025

== ENCOUNTER → 2022-12-19 13:41 | Outpatient (CLI) | payer MEDICARE, BC, SELFPAY ==
--- NOTE | ~2022-12-19 | MM_ITS ---
EXAMINATION: MM screening [facility] BI w rebecca HISTORY: Screening TECHNIQUE: Craniocaudal and mediolateral oblique 3-D tomosynthesis images were obtained and synthetic 2-D images were generated. CAD analysis was submitted and interpreted. COMPARISON: Comparison to multiple prior studies sequentially, with oldest reviewed study dated 06/2017. BREAST PARENCHYMAL COMPOSITION: There are scattered areas of fibroglandular density. FINDINGS: There is no evidence of suspicious mass, calcification, or architectural distortion to sugg est malignancy in either breast. There has been no suspicious interval change. IMPRESSION: 1. No mammographic evidence of malignancy. 2. Recommend routine screening mammography in one year. BI-RADS Category 1: Negative Reviewed, dictated and finalized at location A.
== END ==
PROVIDERS: PCP Family Medicine; Visit Provider Family Medicine
DX: Z12.31 Encounter for screening mammogram for malignant neoplasm of breast (principal)
CPT/HCPCS: 77063; 77067

== ENCOUNTER 2023-03-25 10:37 | Emergency (ER) | payer MEDICARE, SELFPAY ==
[2023-03-25 10:45] VITALS: BP 131/60; PULSE 70; RESP 16; TEMP 36.7; O2SAT 100
--- NOTE | 2023-03-25 10:45 | ED.URI ---
HPI - URI/Sore Throat General Chief Complaint: Upper Respiratory Infection Stated Complaint: sore throat,sinus inf Time Seen by Provider: 03/25/23 10:53 History of Present Illness HPI Narrative: 72 y/o female with hx DM, HTN, cardiomyopathy presented for c/o sore/scratchy throat for 2 days. Also with itchy eyes and ears, nasal congestion and drainage. Reports she sleeps with her mouth open and throat feels dry in the morning. Denies sick contacts. Took Negative home covid test yesterday. Denies cough, sob, wheezing, n/v/d/f/c. Not taking anything for symptoms. Has been gargling warm salt water. Related Data Home Medications Medication Instructions Recorded Confirmed aspirin 81 mg tablet,delayed 81 mg PO DAILY 02/08/21 03/07/23 release brimonidine 0.2 %-timolol 0.5 % 2 drp EACH EYE DAILY 02/08/21 03/07/23 eye drops (Combigan) metformin 500 mg tablet 500 mg PO DAILY 02/08/21 03/07/23 simvastatin 10 mg tablet 10 mg PO DAILY 02/08/21 03/07/23 biotin 1,000 mcg chewable tablet 1,000 mcg PO DAILY 03/02/21 03/07/23 calcium carbonate 500 mg-vitamin 1 tablet PO DAILY 03/02/21 03/07/23 D3 5 mcg (200 unit) tablet (Calcium 500 + D) famotidine 20 mg tablet 20 mg PO BID 03/02/21 03/07/23 spironolactone 25 mg tablet 25 mg PO DAILY 03/02/21 03/07/23 vit C 250 mg-vit E 90 mg-zinc 40 2 tablet PO BID 03/02/21 03/07/23 mg-copper 1 oj-vyhkvb-xyxmvj capsule (PreserVision AREDS-2) sacubitril 24 mg-valsartan 26 mg 24 - 26 tablet PO BID 03/04/21 03/07/23 tablet (Entresto) furosemide 20 mg tablet 40 mg PO DAILY 03/22/21 03/07/23 carvedilol 3.125 mg tablet 6.25 mg PO BID 03/31/21 03/07/23 dapagliflozin propanediol 10 mg 10 mg PO DAILY 05/24/21 03/07/23 tablet (Farxiga) Allergies Allergy/AdvReac Type Severity Reaction Status Date / Time Sulfa (Sulfonamide Allergy Intermediate Palpitation Verified 03/25/23 10:40 Antibiotics) s sulfur dioxide Allergy Intermediate Palpitation Verified 03/25/23 10:40 s azithromycin Allergy Mild Itching Verified 03/25/23 10:40 Review of Systems Review of Systems: CONSTITUTIONAL: Denies body aches, fever, chills, or sweats. EYES: Denies visual changes, redness, or discharge. ENT: Reports scratchy throat, rhinorrhea, congestion, Denies otalgia. CARDIOVASCULAR: Denies chest pain, palpitations, or edema. RESPIRATORY: Denies dyspnea. GASTROINTESTINAL: Denies abdominal pain, nausea, vomiting, or diarrhea. SKIN: Denies rash, itching, or wounds. MUSCULOSKELETAL: Denies back pain, joint pain, or myalgia. NEUROLOGIC: Denies headache [facility] Past Medical History Medical History Essential (primary) hypertension (~2004) GERD (gastroesophageal reflux disease) Glaucoma H/O barium enema 2017 Hyperlipidemia (~2000) Hyperlipidemia associated with type 2 diabetes mellitus Hypertension associated with diabetes Left bundle branch block Sinusitis Type 2 diabetes mellitus without complications (~2000) Surgical History Surgical History H/O colonoscopy 2017 S/P iridectomy Family History Family History Mother Diabetes mellitus Hypertension Sibling Malignant neoplasm of prostate, Onset Age: 55 older brother Diabetes mellitus Heart disease, Onset Age: 65 1/2 older sister: by mother Carcinoma of colon, Onset Age: 55 biological sister Glaucoma, Onset Age: 65 older sister Hypertension Hyperlipemia Father Glaucoma Other Family history of colonic diverticulitis Family history of glaucoma Social History Social History Smoking status: Never smoker Second hand tobacco smoke exposure: Yes Alcohol intake: never Alcohol use details: less than 1 drink per month Substance use: never Substance us
== END 2023-03-25 11:11 | disposition home or self-care (01) ==
PROVIDERS: Emergency Provider Nurse Practitioner Family; PCP Family Medicine
DX: J30.9 Allergic rhinitis, unspecified (principal); I10 Essential (primary) hypertension; K21.9 Gastro-esophageal reflux disease without esophagitis; E78.5 Hyperlipidemia, unspecified; E11.39 Type 2 diabetes mellitus with other diabetic ophthalmic complication; H42 Glaucoma in diseases classified elsewhere; Z79.84 Long term (current) use of oral hypoglycemic drugs; Z79.82 Long term (current) use of aspirin
CPT/HCPCS: 87081; 87880; 99213; G0463

== ENCOUNTER 2023-08-22 10:01 | Outpatient (CLI) | payer MEDICARE, SELFPAY ==
[2023-08-22 10:33] LABS: Basophils Percent Auto 0.2 % (0.2-1.2); Eosinophils Absolute Auto 0.1 K/mm3 (0-0.3); Eosinophils Percent Auto 1.5 % (0-4.4); Hematocrit 39.7 % (37.0-47.0); Immature Granulocyte Absolute 0.02 K/mm3 (0.00-0.031); Immature Granulocyte Percent A 0.3 % (0-0.5); Lymphocytes Percent Auto 24.2 % (18.3-44.2); Mean Corpuscular HGB Conc 30.2 g/dl (32-36); Mean Corpuscular Hemoglobin 27.6 pg (26-34); Mean Corpuscular Volume 91.3 fl (80-100); Mean Platelet Volume 11.2 fl (7.4-10.4); Monocytes Absolute Auto 0.5 K/mm3 (0.1-0.6); Monocytes Percent Auto 7.4 % (2.6-8.5); Neutrophils Absolute Auto 4.1 K/mm3 (1.3-6.7); Neutrophils Percent Auto 66.4 % (45.5-73.1); Platelet Count Result 181 k/mm3 (150-375); Red Blood Count 4.35 M/mm3 (4.2-5.4); Red Cell Distribution Width 13.2 % (11.5-14.5); White Blood Count 6.2 K/mm3 (4.5-10.0)
[2023-08-22 10:43] LABS: Creatinine Urine 156.9 mg/dL
[2023-08-22 10:48] LABS: MALB Creatinine Ratio 6.4 mg/g (0-30)
[2023-08-22 10:50] LABS: Alanine Aminotransferase 16 U/L (6-35); Alkaline Phosphatase 45 U/L (38-126); Anion Gap 7 mmol/L (8-16); Aspartate Amino Transferase 25 U/L (14-36); Bilirubin,Total 0.6 mg/dL (0.2-1.3); Blood Urea Nitrogen 22 mg/dL (7-17); Calcium 9.7 mg/dL (8.4-10.2); Carbon Dioxide 30 mmol/L (22-30); Chloride 104 mmol/L (98-107); Cholesterol 136 mg/dL (0-200); Estimated Glomerular Filt Rate > 60; Glucose 95 mg/dL (65-110); HDL Direct 43 mg/dL; Potassium 4.3 mmol/L (3.4-5.0); Sodium 141 mmol/L (137-145); Triglycerides 46 mg/dL (<150)
[2023-08-22 11:00] LABS: LDL Cholesterol Direct 70 mg/dL
[2023-08-22 11:19] LABS: Total Triiodothyronine (T3) 1.05 NG/ML (0.97-1.69)
[2023-08-22 12:13] LABS: Free T4 Free Thyroxine 1.36 ng/mL (0.78-2.19); Vitamin D 25 Hydroxy 52.7 ng/mL
== END 2023-08-22 10:02 | disposition home or self-care (01) ==
PROVIDERS: PCP Family Medicine; Visit Provider Nurse Practitioner Adult Health
DX: E78.5 Hyperlipidemia, unspecified (principal); E11.9 Type 2 diabetes mellitus without complications; E55.9 Vitamin D deficiency, unspecified; I50.9 Heart failure, unspecified; I10 Essential (primary) hypertension; F51.05 Insomnia due to other mental disorder
CPT/HCPCS: 36415; 80053; 80061; 82043; 82306; 83036; 84439; 84443; 84480; 85025

== ENCOUNTER 2024-04-22 14:22 | Outpatient (CLI) | payer MEDICARE, SELFPAY ==
--- NOTE | ~2024-04-22 | MM_ITS ---
EXAMINATION: MM screening [facility] BI w rebecca HISTORY: Screening TECHNIQUE: Craniocaudal and mediolateral oblique 3-D tomosynthesis images were obtained and synthetic 2-D images were generated. CAD analysis was submitted and interpreted. COMPARISON: Comparison to multiple prior studies sequentially, with oldest reviewed study dated 06/2017. BREAST PARENCHYMAL COMPOSITION: Not dense: There are scattered areas of fibroglandular density. FINDINGS: There is no evidence of suspicious mass, calcification, or architectural distortion to sugg est malignancy in either breast. There has been no suspicious interval change. IMPRESSION: 1. No mammographic evidence of malignancy. 2. Recommend routine screening mammography in one year. BI-RADS Category 1: Negative Reviewed, dictated and finalized at location B.
== END 2024-04-22 14:23 ==
PROVIDERS: PCP Family Medicine; Visit Provider Internal Medicine
DX: Z12.31 Encounter for screening mammogram for malignant neoplasm of breast (principal)
CPT/HCPCS: 77063; 77067

== ENCOUNTER 2024-06-10 10:33 | Outpatient (CLI) | payer MEDICARE, SELFPAY ==
[2024-06-10 11:17] LABS: Alanine Aminotransferase 24 U/L (6-35); Albumin Level 3.5 g/dL (3.5-5.1); Alkaline Phosphatase 44 U/L (38-126); Anion Gap 5 mmol/L (4-12); Aspartate Amino Transferase 26 U/L (14-36); Bilirubin,Total 0.4 mg/dL (0.2-1.3); Blood Urea Nitrogen 23 mg/dL (7-17); Calcium 9.4 mg/dL (8.4-10.2); Carbon Dioxide 28 mmol/L (22-30); Chloride 108 mmol/L (98-107); Cholesterol 112 mg/dL (0-200); Estimated Glomerular Filt Rate 59; Glucose 106 mg/dL (65-110); HDL Direct 39 mg/dL; Potassium 4.5 mmol/L (3.4-5.0); Sodium 141 mmol/L (137-145); Triglycerides 42 mg/dL (<150)
[2024-06-10 11:19] LABS: Hemoglobin A1C 6.3 % (<5.7)
[2024-06-10 11:28] LABS: LDL Cholesterol Direct 59 mg/dL
[2024-06-10 12:02] LABS: Creatinine Urine 157.2 mg/dL
[2024-06-10 12:15] LABS: Microalbumin Urine Random 17.3 mg/L (0-16.7)
== END 2024-06-10 10:34 | disposition home or self-care (01) ==
PROVIDERS: PCP Family Medicine; Visit Provider Internal Medicine
DX: E78.5 Hyperlipidemia, unspecified (principal); E11.9 Type 2 diabetes mellitus without complications
CPT/HCPCS: 36415; 80053; 80061; 82043; 83036

== ENCOUNTER 2024-06-15 17:22 | Emergency (ER) | payer MEDICARE, SELFPAY ==
--- NOTE | ~2024-06-15 | XR_ITS ---
XR chest 2V Ordering provider: CARLY Singh History: 74 years Female with . hx CHF. new SOB, swelling . Comparison: January 23, 2021 FINDINGS: MEDIASTINUM: The cardiac silhouette is not enlarged. Congestive darcie. LUNGS: No infiltrates or pneumothorax. Blunting of the right costophrenic angle which may indicate mi nimal effusion. Underlying emphysematous changes. OTHER: No free air under the diaphragm. IMPRESSION: Blunting of the right costophrenic angle which may indicate focal atelectasis versus pneumonia with m inimal effusion. Reviewed, dictated and finalized at location A. IMPRESSION: Blunting of the right costophrenic angle which may indicate focal atelectasis v ersus pneumonia with minimal effusion.
[2024-06-15 17:30] VITALS: BP 153/55; PULSE 77; RESP 16; TEMP 36.7; O2SAT 99
--- NOTE | 2024-06-15 17:59 | ED.GENADULT ---
HPI - General Adult General Chief complaint: Extremity Problem,Nontraumatic Stated complaint: LEGS SWELLING Time Seen by Provider: 06/15/24 17:49 Source: patient and RN notes reviewed Mode of arrival: ambulatory Limitations: no limitations History of Present Illness HPI narrative: Patient presents today complaining of bilateral lower leg and ankle swelling x5 days. She also reports a 5 day history of mild cough that is worse in morning 3 day history of mildly labored breathing only with exertion. States she does have history of heart failure, but states she does not have congestive heart failure. Patient believes all these symptoms are due to the COVID-19 shot she got last week. Patient takes 40 mg Lasix daily Related Data Home Medications Medication Instructions Recorded Confirmed aspirin 81 mg tablet,delayed 81 mg PO DAILY 02/08/21 03/07/23 release brimonidine 0.2 %-timolol 0.5 % 2 drp EACH EYE DAILY 02/08/21 03/07/23 eye drops (Combigan) metformin 500 mg tablet 500 mg PO DAILY 02/08/21 03/07/23 simvastatin 10 mg tablet 10 mg PO DAILY 02/08/21 03/07/23 biotin 1,000 mcg chewable tablet 1,000 mcg PO DAILY 03/02/21 03/07/23 calcium carbonate 500 mg-vitamin 1 tablet PO DAILY 03/02/21 03/07/23 D3 5 mcg (200 unit) tablet (Calcium 500 + D) famotidine 20 mg tablet 20 mg PO BID 03/02/21 03/07/23 spironolactone 25 mg tablet 25 mg PO DAILY 03/02/21 03/07/23 vit C 250 mg-vit E 90 mg-zinc 40 2 tablet PO BID 03/02/21 03/07/23 mg-copper 1 ye-qadtpv-kajykn capsule (PreserVision AREDS-2) sacubitril 24 mg-valsartan 26 mg 24 - 26 tablet PO BID 03/04/21 03/07/23 tablet (Entresto) furosemide 20 mg tablet 40 mg PO DAILY 03/22/21 03/07/23 carvedilol 3.125 mg tablet 6.25 mg PO BID 03/31/21 03/07/23 dapagliflozin propanediol 10 mg 10 mg PO DAILY 05/24/21 03/07/23 tablet (Farxiga) Allergies Allergy/AdvReac Type Severity Reaction Status Date / Time Sulfa (Sulfonamide Allergy Intermediate Palpitation Verified 03/25/23 10:40 Antibiotics) s sulfur dioxide Allergy Intermediate Palpitation Verified 03/25/23 10:40 s azithromycin Allergy Mild Itching Verified 03/25/23 10:40 Review of Systems Review of Systems: CONSTITUTIONAL: Denies body aches, fever, chills, or sweats. EYES: Denies visual changes, redness, or discharge. ENT: Denies rhinorrhea, congestion, sore throat, or otalgia. CARDIOVASCULAR: Denies chest pain, palpitations, or edema. RESPIRATORY:+ cough, shortness of breath with exertion GASTROINTESTINAL: Denies abdominal pain, nausea, vomiting, or diarrhea. GENITOURINARY: Denies dysuria or hematuria. SKIN: Denies rash, itching, or wounds. MUSCULOSKELETAL: Denies back pain, joint pain, or myalgia.+ right lower leg and ankle swelling bilaterally NEUROLOGIC: Denies headache, numbness, tingling, or weakness. PSYCH: Denies depression or anxiety. [facility] Past Medical History Medical History Essential (primary) hypertension (~2005) GERD (gastroesophageal reflux disease) Glaucoma H/O barium enema 2017 Hyperlipidemia (~2000) Hyperlipidemia associated with type 2 diabetes mellitus Hypertension associated with diabetes Left bundle branch block Sinusitis Type 2 diabetes mellitus without complications (~2000) Surgical History Surgical History H/O colonoscopy 2017 S/P iridectomy Family History Family History Mother Diabetes mellitus Hypertension Sibling Malignant neoplasm of prostate, Onset Age: 55 older brother Diabetes mellitus Heart disease, Onset Age: 65 1/2 older sister: by mother Carcinoma of colon, Onset Age: 55 biological sister Glaucoma, Onset Age: 65 older sister Hypertension Hyperlipemia Father Glaucoma Other Family history of colonic diverticulitis Family hi
== END 2024-06-15 18:35 | disposition home or self-care (01) ==
PROVIDERS: Emergency Provider Nurse Practitioner; PCP Internal Medicine
DX: R22.43 Localized swelling, mass and lump, lower limb, bilateral (principal); R05.1 Acute cough; I10 Essential (primary) hypertension; K21.9 Gastro-esophageal reflux disease without esophagitis; E11.39 Type 2 diabetes mellitus with other diabetic ophthalmic complication; H42 Glaucoma in diseases classified elsewhere; Z79.84 Long term (current) use of oral hypoglycemic drugs; E78.5 Hyperlipidemia, unspecified
CPT/HCPCS: 71046; 99213; G0463

== ENCOUNTER 2024-06-16 10:19 | Emergency (ER) | payer MEDICARE, SELFPAY ==
[2024-06-16] VITALS (15 sets, daily range): BP systolic 138–165; BP diastolic 47–55; PULSE 35–70; RESP 12–18; TEMP 36.4–36.6; O2SAT 97–100
--- NOTE | ~2024-06-16 | XR_ITS ---
EXAMINATION: XR chest 2V DATE: 06/16/2024 12:35 INDICATION: Shortness of breath TECHNIQUE: PA and lateral views of the chest were obtained. COMPARISON: Chest radiograph dated 06/15/2024 FINDINGS: Unchanged small right pleural and tiny left pleural effusion with blunting at the costophrenic and ca rdiophrenic angles and posterior sulci. No other airspace opacities, pulmonary edema or pneumothorax. Mild cardiomegaly. Mild thoracic spondylosis. IMPRESSION: 1. Cardiomegaly with small right and tiny left pleural effusions. Reviewed, dictated and finalized at location A.
--- NOTE | ~2024-06-16 | US_ITS ---
BILATERAL LOWER EXTREMITY VENOUS ULTRASOUND Ordering provider: Ryne Braun MD History: . edema . Comparison: None. FINDINGS: RIGHT LOWER EXTREMITY VEINS: --COMMON FEMORAL: Patent and free of thrombus. Normal compressibility, phasic flow and augmentation. --PROXIMAL SUPERFICIAL FEMORAL: Patent and free of thrombus. Normal compressibility, phasic flow and augmentation. --DISTAL SUPERFICIAL FEMORAL: Patent and free of thrombus. Normal compressibility, phasic flow and au gmentation. --POPLITEAL: Patent and free of thrombus. Normal compressibility, phasic flow and augmentation. --POSTERIOR TIBIAL: Patent and free of thrombus. Normal compressibility, phasic flow and augmentation . LEFT LOWER EXTREMITY VEINS: --COMMON FEMORAL: Patent and free of thrombus. Normal compressibility, phasic flow and augmentation. --PROXIMAL SUPERFICIAL FEMORAL: Patent and free of thrombus. Normal compressibility, phasic flow and augmentation. --DISTAL SUPERFICIAL FEMORAL: Patent and free of thrombus. Normal compressibility, phasic flow and au gmentation. --POPLITEAL: Patent and free of thrombus. Normal compressibility, phasic flow and augmentation. --POSTERIOR TIBIAL: Patent and free of thrombus. Normal compressibility, phasic flow and augmentation . IMPRESSION: Negative bilateral lower extremity venous US. No deep vein thrombosis. Reviewed, dictated and finalized at location A.
--- NOTE | 2024-06-16 11:47 | ECG_ITS ---
Test Date: 2024-06-16 12:17:22 Measurements Intervals [place] Rate: 44 P: 0 MA: 0 QRS: 9 QRSD: 133 T: 222 QT: 511 QTc: 437 Interpretive Statements SINUS RHYTHM WITH COMPLETE HEART BLOCK ATRIAL PREMATURE COMPLEXES SLOW JUNCTIONAL ESCAPE RHYTHM RIGHT BUNDLE BRANCH BLOCK ABNORMAL ECG No previous ECG available for comparison Electronically Signed On 06-16-2024 15:22:54 CDT by Kee Kessler D.O.
[2024-06-16 12:32] LABS: Basophils Percent Auto 0.2 % (0.2-1.2); Eosinophils Absolute Auto 0.1 K/mm3 (0-0.3); Eosinophils Percent Auto 1.2 % (0-4.4); Hematocrit 34.6 % (37.0-47.0); Hemoglobin 10.7 g/dL (12.0-15.0); Immature Granulocyte Absolute 0.01 K/mm3 (0.00-0.031); Immature Granulocyte Percent A 0.2 % (0-0.5); Lymphocytes Absolute Auto 1.64 K/mm3 (0.9-3.2); Lymphocytes Percent Auto 25.1 % (18.3-44.2); Mean Corpuscular HGB Conc 30.9 g/dl (32-36); Mean Corpuscular Hemoglobin 28.5 pg (26-34); Mean Platelet Volume 12.9 fl (7.4-10.4); Monocytes Absolute Auto 0.5 K/mm3 (0.1-0.6); Monocytes Percent Auto 8.1 % (2.6-8.5); Neutrophils Absolute Auto 4.3 K/mm3 (1.3-6.7); Neutrophils Percent Auto 65.2 % (45.5-73.1); Platelet Count Result 147 k/mm3 (150-375); Red Blood Count 3.76 M/mm3 (4.2-5.4); Red Cell Distribution Width 14.1 % (11.5-14.5); White Blood Count 6.5 K/mm3 (4.5-10.0)
[2024-06-16 12:42] LABS: Alanine Aminotransferase 61 U/L (6-35); Albumin Level 3.5 g/dL (3.5-5.1); Alkaline Phosphatase 58 U/L (38-126); Anion Gap 11 mmol/L (4-12); Aspartate Amino Transferase 43 U/L (14-36); Bilirubin,Total 0.3 mg/dL (0.2-1.3); Blood Urea Nitrogen 23 mg/dL (7-17); Calcium 9.2 mg/dL (8.4-10.2); Carbon Dioxide 28 mmol/L (22-30); Chloride 102 mmol/L (98-107); Estimated CRCL calculation 39 ml/min; Estimated Glomerular Filt Rate 59; Glucose 109 mg/dL (65-110); Magnesium 2.2 mg/dL (1.6-2.3); Potassium 4.2 mmol/L (3.4-5.0); Sodium 141 mmol/L (137-145)
[2024-06-16 12:54] LABS: NT Pro B Type Natriuretic Pept 3900 pg/mL (19.9-100); Troponin I < 0.012 ng/mL (0.000-0.034)
--- NOTE | 2024-06-16 13:21 | ED.GENADULT ---
HPI - General Adult General Chief complaint: Extremity Problem,Nontraumatic Stated complaint: swollen feet Time Seen by Provider: 06/16/24 11:39 History of Present Illness HPI narrative: Patient is a 74-year-old female who presents ER with swelling of her feet bilaterally. Ongoing over last week since having her COVID shot. She has begun to feel a bit more weak as well. No dizziness. No shortness of breath. No syncope. Patient denies any chest pain. She has history of heart failure. She sees Dr. Corona at [facility]. Related Data Home Medications Medication Instructions Recorded Confirmed aspirin 81 mg tablet,delayed 81 mg PO DAILY 02/08/21 03/07/23 release brimonidine 0.2 %-timolol 0.5 % 2 drp EACH EYE DAILY 02/08/21 03/07/23 eye drops (Yeimy) metformin 500 mg tablet 500 mg PO DAILY 02/08/21 03/07/23 simvastatin 10 mg tablet 10 mg PO DAILY 02/08/21 03/07/23 biotin 1,000 mcg chewable tablet 1,000 mcg PO DAILY 03/02/21 03/07/23 calcium carbonate 500 mg-vitamin 1 tablet PO DAILY 03/02/21 03/07/23 D3 5 mcg (200 unit) tablet (Calcium 500 + D) famotidine 20 mg tablet 20 mg PO BID 03/02/21 03/07/23 spironolactone 25 mg tablet 25 mg PO DAILY 03/02/21 03/07/23 vit C 250 mg-vit E 90 mg-zinc 40 2 tablet PO BID 03/02/21 03/07/23 mg-copper 1 [id number] capsule (PreserVision AREDS-2) sacubitril 24 mg-valsartan 26 mg 24 - 26 tablet PO BID 03/04/21 03/07/23 tablet (Entresto) furosemide 20 mg tablet 40 mg PO DAILY 03/22/21 03/07/23 carvedilol 3.125 mg tablet 6.25 mg PO BID 03/31/21 03/07/23 dapagliflozin propanediol 10 mg 10 mg PO DAILY 05/24/21 03/07/23 tablet (Farxiga) Allergies Allergy/AdvReac Type Severity Reaction Status Date / Time Sulfa (Sulfonamide Allergy Intermediate Palpitation Verified 03/25/23 10:40 Antibiotics) s sulfur dioxide Allergy Intermediate Palpitation Verified 03/25/23 10:40 s azithromycin Allergy Mild Itching Verified 03/25/23 10:40 Review of Systems Review of Systems: All systems reviewed & are unremarkable except as noted in HPI and below Constitutional: Constitutional: Denies chills, Reports fatigue and Denies fever(s) ENT: Reports system reviewed and no additional complaints, except as documented Cardiovascular: Cardiovascular: Reports no additional cardiovascular complaints Respiratory: Respiratory: Reports no additional respiratory complaints Gastrointestinal: Gastrointestinal: Reports no additional gastrointestinal complaints Musculoskeletal: Musculoskeletal: Denies arthralgias, Denies joint swelling and Reports muscle cramps Comments: leg edema [facility] Past Medical History Medical History (Updated 06/16/24 @ 16:43 by Ryne Braun MD) Essential (primary) hypertension (~2004) GERD (gastroesophageal reflux disease) Glaucoma H/O barium enema 2017 Heart failure Hyperlipidemia (~1999) Hyperlipidemia associated with type 2 diabetes mellitus Hypertension associated with diabetes Left bundle branch block Sinusitis Type 2 diabetes mellitus without complications (~1999) Surgical History Surgical History H/O colonoscopy 2017 S/P iridectomy Family History Family History Mother Diabetes mellitus Hypertension Sibling Malignant neoplasm of prostate, Onset Age: 55 older brother Diabetes mellitus Heart disease, Onset Age: 65 1/2 older sister: by mother Carcinoma of colon, Onset Age: 55 biological sister Glaucoma, Onset Age: 65 older sister Hypertension Hyperlipemia Father Glaucoma Other Family history of colonic diverticulitis Family history of glaucoma Social History Social History Smoking status: Never smoker Second hand tobacco smoke exposure: Yes Alcohol intake: never Alcohol use details: less
[2024-06-16] MEDS: GLUCAGON FOR INJ 1 MG VIAL IV PUSH ×2 (13:38→14:35)
[2024-06-16] MEDS: ATROPINE SULFATE 1 MG/ML VIAL IV PUSH (15:06)
[2024-06-16] MEDS: ATROPINE SULFATE 1 MG/10 ML SYRINGE (15:20)
[2024-06-16 15:24] LABS: Troponin I 0.015 ng/mL (0.000-0.034)
--- NOTE | 2024-06-16 15:34 | ECG_ITS ---
Test Date: 2024-06-16 15:40:53 Measurements Intervals [place] Rate: 37 P: 0 NC: 0 QRS: 19 QRSD: 140 T: -82 QT: 505 QTc: 399 Interpretive Statements SINUS RHYTHM WITH COMPLETE HEART BLOCK SLOW JUNCTIONAL ESCAPE RHYTHM RIGHT BUNDLE BRANCH BLOCK BASELINE ARTIFACT- I, II, V1-V3 ABNORMAL ECG Compared to ECG 06/16/2024 12:17:22 NO SIGNIFICANT CHANGE Electronically Signed On 06-16-2024 16:42:21 CDT by Kee Kessler D.O.
== END 2024-06-16 18:29 | disposition short-term general hospital (02) ==
PROVIDERS: Emergency Provider Emergency Medicine; PCP Internal Medicine
DX: I44.2 Atrioventricular block, complete (principal); I11.0 Hypertensive heart disease with heart failure; I50.9 Heart failure, unspecified; I15.2 Hypertension secondary to endocrine disorders; E11.69 Type 2 diabetes mellitus with other specified complication; E78.5 Hyperlipidemia, unspecified; E11.39 Type 2 diabetes mellitus with other diabetic ophthalmic complication; H42 Glaucoma in diseases classified elsewhere; K21.9 Gastro-esophageal reflux disease without esophagitis; Z79.84 Long term (current) use of oral hypoglycemic drugs; Z79.82 Long term (current) use of aspirin; Z79.899 Other long term (current) drug therapy; I49.1 Atrial premature depolarization; I45.10 Unspecified right bundle-branch block
CPT/HCPCS: 36415; 71046; 80053; 83735; 83880; 84443; 84484; 85025; 93005; 93970; 96374; 96375; 96376; 99285; J0461; J1610

== ENCOUNTER 2024-07-19 12:29 | Outpatient (CLI) | payer MEDICARE, SELFPAY ==
[2024-07-19 13:01] LABS: Basophils Percent Auto 0.2 % (0.2-1.2); Eosinophils Absolute Auto 0.2 K/mm3 (0-0.3); Eosinophils Percent Auto 3.6 % (0-4.4); Hematocrit 39.2 % (37.0-47.0); Hemoglobin 12.1 g/dL (12.0-15.0); Immature Granulocyte Absolute 0.01 K/mm3 (0.00-0.031); Immature Granulocyte Percent A 0.2 % (0-0.5); Lymphocytes Absolute Auto 1.82 K/mm3 (0.9-3.2); Lymphocytes Percent Auto 27.5 % (18.3-44.2); Mean Corpuscular HGB Conc 30.9 g/dl (32-36); Mean Corpuscular Hemoglobin 28.4 pg (26-34); Mean Platelet Volume 11.7 fl (7.4-10.4); Monocytes Absolute Auto 0.4 K/mm3 (0.1-0.6); Monocytes Percent Auto 6.1 % (2.6-8.5); Neutrophils Absolute Auto 4.1 K/mm3 (1.3-6.7); Neutrophils Percent Auto 62.4 % (45.5-73.1); Platelet Count Result 160 k/mm3 (150-375); Red Blood Count 4.26 M/mm3 (4.2-5.4); Red Cell Distribution Width 13.4 % (11.5-14.5); White Blood Count 6.6 K/mm3 (4.5-10.0)
[2024-07-19 13:18] LABS: Anion Gap 6 mmol/L (4-12); Blood Urea Nitrogen 25 mg/dL (7-17); Carbon Dioxide 31 mmol/L (22-30); Chloride 104 mmol/L (98-107); Estimated Glomerular Filt Rate 59; Glucose 96 mg/dL (65-110); Potassium 4.3 mmol/L (3.4-5.0); Sodium 141 mmol/L (137-145)
== END 2024-07-19 12:30 | disposition home or self-care (01) ==
PROVIDERS: PCP Internal Medicine; Visit Provider Internal Medicine
DX: D64.9 Anemia, unspecified (principal); N28.9 Disorder of kidney and ureter, unspecified
CPT/HCPCS: 36415; 80048; 85025

== ENCOUNTER 2024-07-31 11:46 | Outpatient (CLI) | payer MEDICARE, SELFPAY ==
--- NOTE | ~2024-07-31 | DEXA_ITS ---
Bone Density Report Name: ALEX YIP Age: 74 Sex: Female Ethnicity: Black Date of : 1950 Indication: postmenopausal; screening for osteoporosis; height loss; Referring Provider: ESTEBAN LEVY Study: Bone densitometry was performed. Exam Date: July 31, 2024 Accession number: [id number] Bone Density: Region BMD T-score Z-score Classification AP Spine(L1-L4) 1.075 0.3 1.9 Normal Femoral Neck (Left) 0.651 -1.8 -0.6 Osteopenia Total Hip (Left) 0.830 -0.9 0.0 Normal Femoral Neck (Right) 0.730 -1.1 0.0 Osteopenia Total Hip (Right) 0.824 -1.0 -0.1 Normal Femoral Neck Mean 0.690 -1.4 -0.3 Osteopenia Total Hip Mean 0.827 -0.9 0.0 Normal World Health Organization criteria for BMD impression classify patients as: Normal (T-score at or above -1.0), Osteopenia (T-score between -1.0 and -2.5), or Osteoporosis (T-score at or below -2.5). 10-year Fracture Risk(1): Major Osteoporotic Fracture 4.9% Hip Fracture 1.1% Reported Risk Factors: [place] (Black), Neck BMD=0.651, BMI=22.3 (1) FRAX(R) Version 3.08. Fracture probability calculated for an untreated patient. Fracture probability may be lower if the patient has received treatment. Clinical Information Provided by Patient: Has used the following medications: Vitamin D, Calcium Patient maximum height was 67 Menopause Age: 59 Drinks caffeinated beverages Onset of menses at age 16 Number of children 0 Impression: The patient has low bone mass, based on the Left Femoral Neck T-score. Discussion: BONE DENSITY IS LOW AT ONE OR MORE SKELETAL SITES. This patient's lowest T-score is low at one or more skeletal sites. It meets the World Health Organization's (WHO) criteria for ?low bone mass? (T-score between -1.0 and -2.5). The patient's 10-year risk of fracture as calculated by FRAX is less than the threshold where pharmacological therapy is recommended by the National Osteoporosis Foundation (NOF). However, all treatment decisions require clinical judgment and consideration of individual patient factors, including patient preferences, comorbidities, previous drug use, risk factors not captured in the FRAX model (e.g., frailty, falls, vitamin D deficiency, increased bone turnover, interval significant decline in bone density) and possible under or overestimation of fracture risk by FRAX. The patient should follow a healthful lifestyle (good nutrition with adequate calcium and vitamin D, and appropriate weight-bearing exercise). Follow-Up: Consider repeating this study in 2 to 3 years to reassess this patient's status, or sooner if there is some new clinical indication. Reported by: MONISHA on 07/31/2024 12:16:00 PM. Reviewed, dictated and finalized at location A.
== END 2024-07-31 11:47 | disposition home or self-care (01) ==
PROVIDERS: PCP Internal Medicine; Visit Provider Internal Medicine
DX: Z78.0 Asymptomatic menopausal state (principal); M85.89 Other specified disorders of bone density and structure, multiple sites
CPT/HCPCS: 77080

== ENCOUNTER 2024-08-21 15:11 | Outpatient (CLI) | payer MEDICARE, SELFPAY ==
[2024-08-21 16:01] LABS: Alanine Aminotransferase 12 U/L (6-35); Albumin Level 4.2 g/dL (3.5-5.1); Alkaline Phosphatase 61 U/L (38-126); Anion Gap 6 mmol/L (4-12); Aspartate Amino Transferase 24 U/L (14-36); Bilirubin,Total 0.4 mg/dL (0.2-1.3); Blood Urea Nitrogen 28 mg/dL (7-17); Calcium 9.5 mg/dL (8.4-10.2); Carbon Dioxide 31 mmol/L (22-30); Chloride 102 mmol/L (98-107); Estimated Glomerular Filt Rate 53; Glucose 134 mg/dL (65-110); Phosphorus 3.8 mg/dL (2.5-4.5); Sodium 139 mmol/L (137-145)
[2024-08-21 16:13] LABS: Parathyroid Intact 72.3 pg/mL (14.5-75.2)
[2024-08-21 16:53] LABS: Vitamin D 25 Hydroxy 44.4 ng/mL
== END 2024-08-21 15:12 | disposition home or self-care (01) ==
PROVIDERS: PCP Internal Medicine; Visit Provider Internal Medicine
DX: M81.0 Age-related osteoporosis without current pathological fracture (principal)
CPT/HCPCS: 36415; 80069; 80076; 82306; 83970

== ENCOUNTER 2025-04-24 10:25 | Outpatient (CLI) | payer MEDICARE, SELFPAY ==
--- NOTE | ~2025-04-24 | MM_ITS ---
EXAMINATION: MM screening rodolfo BI w rebecca HISTORY: Screening TECHNIQUE: Craniocaudal and mediolateral oblique 3-D tomosynthesis images were obtained and synthetic 2-D images were generated. CAD analysis was submitted and interpreted. COMPARISON: Comparison to multiple prior studies sequentially, with oldest reviewed study dated 02/09. BREAST PARENCHYMAL COMPOSITION: The breasts are heterogeneously dense, which may obscure small masses . FINDINGS: There is no evidence of suspicious mass, calcification, or architectural distortion to sug gest malignancy in either breast. IMPRESSION: 1. No mammographic evidence of malignancy. 2. Recommend routine screening mammography in one year. BI-RADS Category 1: Negative Reviewed, dictated and finalized at location B.
== END 2025-04-24 10:26 | disposition home or self-care (01) ==
DX: Z12.31 Encounter for screening mammogram for malignant neoplasm of breast (principal)
CPT/HCPCS: 77063; 77067